=== PATIENT | female | born 1970 ===

== ENCOUNTER 2017-04-23 07:33 | Emergency (ER) | payer OTHER ==
[2017-04-23 07:33] VITALS: BMI 31.8
[2017-04-23 07:39] VITALS: BP 121/81; PULSE 79; TEMP 97; O2SAT 100
--- NOTE | 2017-04-23 10:37 | RAD ---
HISTORY: R chest pain COMPARISON: 01/14/2016. TECHNIQUE: Chest PA and lateral FINDINGS: LUNGS: The lungs are well inflated and clear. PLEURA: No significant pleural effusion identified. No pneumothorax apparent. CARDIOVASCULAR: Normal. OSSEOUS STRUCTURES: No significant abnormalities. VISUALIZED UPPER ABDOMEN: Normal. OTHER FINDINGS: None. IMPRESSION: No active pulmonary disease.
--- NOTE | 2017-04-23 11:00 | ED PDOC ---
Upper Extremity Pain/Injury Time Seen by Provider: 04/23/17 07:57 Chief Complaint (Nursing): Chest Pain Chief Complaint (Provider): Right arm and shoulder pain History Per: Patient History/Exam Limitations: no limitations Onset/Duration Of Symptoms: Days (x 3 days) Current Symptoms Are (Timing): Still Present Additional Complaint(s): Micheline Montoya is a 46-year-old female with a past medical history of hypertension who presents to the emergency department complaining of right upper arm and shoulder pain with associated paresthesia to the arm with movement , onset after punching a wall 3 days ago. Patient reports being seen at [facility] and had a "negative" X-Ray. The pain is persistent and radiates to the right posterior back. Denies neck pain, headaches, and being assaulted. PMD: Not reported Past Medical History Reviewed: Historical Data, Nursing Documentation, Vital Signs Vital Signs: Last Vital Signs Temp 97 F L 04/23/17 07:38 Pulse 79 04/23/17 07:38 Resp BP 121/81 04/23/17 07:38 Pulse Ox 100 04/23/17 07:38 - Medical History PMH: Arthritis, Diabetes (gestational), HTN, Kidney Stones, Migraine ( hemiplegic migraine) Denies: HIV - Surgical History Surgical History: Appendectomy, Cholecystectomy, Tonsillectomy, - Family History Family History: States: Unknown Family Hx - Social History Current smoker - smoking cessation education provided: Yes Alcohol: None Drugs: Denies - Home Medications Home Medications: Ambulatory Orders Medication Instructions Recorded Chlorthalidone 25 mg PO DAILY 02/24/15 Acetaminophen/Butalbital/Caf 1 tab PO Q4 PRN #30 tab 02/25/15 [Fioricet] Potassium Chloride [K-Dur 20] 40 meq PO DAILY #7 tab 02/25/15 Topiramate [Topamax] 25 mg PO HS #30 tab 02/25/15 Clindamycin [Cleocin] 300 mg PO TID #30 cap 03/19/15 Potassium Chloride 20 meq PO BID #8 tablet.er 01/14/16 Ranitidine HCl [Zantac 150] 150 mg PO BID #20 tab 01/14/16 Naproxen [Naprosyn] 500 mg PO BID PRN #14 tablet 04/23/17 - Allergies Allergies/Adverse Reactions: Allergies Allergy/AdvReac Type Severity Reaction Status Date / Time latex Allergy REDNESS Verified 01/14/16 16:19 tape Allergy REDNESS Uncoded 01/14/16 16:19 Review of Systems ROS Statement: Except As Marked, All Systems Reviewed And Found Negative Musculoskeletal: Positive for: Shoulder Pain, Arm Pain (Right upper arm and shoulder pain, radiating to the right posterior back), Back Pain. Negative for : Neck Pain Neurological: Positive for: Other (Paresthesia to the right arm with movement). Negative for: Headache Physical Exam - Reviewed Nursing Documentation Reviewed: Yes Vital Signs Reviewed: Yes - Physical Exam Appears: Positive for: Well, Non-toxic, No Acute Distress Head Exam: Positive for: ATRAUMATIC, NORMAL INSPECTION, NORMOCEPHALIC Skin: Positive for: Normal Color, Warm, Dry Eye Exam: Positive for: EOMI, Normal appearance, PERRL Neck: Positive for: Normal (Nontender. No signs of erythema or edema. ), Supple Cardiovascular/Chest: Positive for: Regular Rate, Rhythm, Other (No subcutaneous emphysema). Negative for: Murmur Respiratory: Positive for: Normal Breath Sounds. Negative for: Accessory Muscle Use, Respiratory Distress Back: Positive for: Normal Inspection Extremity: Positive for: Tenderness (Mild tenderness to the proximal, dorsal hand. Mild tenderness with ROM to shoulder and scapula.), Other (No signs of erythema or edema). Negative for: Pedal Edema, Deformity Neurologic/Psych: Positive for: Alert, Oriented - ECG O2 Sat by Pulse Oximetry: 100 (RA) Pulse Ox Interpretation: Normal Medical Decision Making Medical Decision Making: Time: 08:01 Initial impression: Right upper arm pain Initial plan: --Chest Two Views (RAD) --Toradol 30 mg IM --Elbow right 3 Views (RAD) --Hand RIght 3 Views (RAD) --Shoulder Right (RAD) --Wrist, Right 3 (RAD) Time: 10:35 --Chest X-ray FINDINGS: LUNGS: The lungs are well inflated and clear. PLEURA: No significant pleural effusion identified. No pneumothorax apparent. CARDIOVASCULAR: Normal. OSSEOUS STRUCTURES: No significant abnormalities. VISUALIZED UPPER ABDOMEN: Normal. OTHER FINDINGS: None. IMPRESSION: No active pulmonary disease. Time: 10:59 ---X-Ray read by me: Negative ---Given Toradol with improvement ---Given sling, will follow up with Orthopedist Upon provider reevaluation patient is feeling better, is medically stable, and requires no further treatment in the ED at this time. Patient will be discharged with sling x3 days and Naprosyn 500 mg 2x daily as needed for pain. Counseling was provided and all questions were answered regarding diagnosis and need for follow up with orthopedist, Dr. Molly Mahmood MD, for further testing. There is agreement to discharge plan. Return if symptoms persist or worsen. Clinical Impression: Arm and shoulder pain Scribe Attestation: Documented by Maki Hope, acting as a scribe for Naveed Armendariz MD. Provider Scribe Attestation: All medical record entries made by the Scribe were at my direction and personally dictated by me. I have reviewed the chart and agree that the record accurately reflects my personal performance of the history, physical exam, medical decision making, and the department course for this patient. I have also personally directed, reviewed, and agree with the discharge instructions and disposition. Disposition - Clinical Impression Clinical Impression: Arm pain, Shoulder pain - Patient ED Disposition Is Patient to be Admitted: No Counseled Patient/Family Regarding: Diagnosis, Need For Followup, Rx Given - Disposition Referrals: Molly Mahmood MD [Staff Provider] - Disposition: Routine/Home Disposition Time: 10:59 Condition: STABLE Additional Instructions: See orthopedist for further testing. Wear sling for 3 days only. Use naprosyn 500mg with food 2x daily as needed for pain. Prescriptions: Naproxen [Naprosyn] 500 mg PO BID PRN #14 tablet PRN Reason: Pain, Moderate (4-7) Instructions: Arthralgia (ED), Arm Pain (ED) Forms: [place] ([place]), [facility] ED School/Work Excuse
--- NOTE | 2017-04-23 11:33 | RAD ---
PROCEDURE: Radiographs of the Right Shoulder HISTORY: R hand/shoulder pain COMPARISON: No prior. FINDINGS: BONES: No evidence of acute displaced fracture nor dislocation. The osseous structures intact JOINTS: Normal. Glenohumeral and acromioclavicular joints preserved. No osteoarthritis. SOFT TISSUES: . Small corticated bony density within the soft tissues adjacent to the humeral head may represent calcified tendinitis or bursitis l. OTHER FINDINGS: None. IMPRESSION: No acute fractures. Findings suggest sequela of calcified tendinitis or bursitis.
--- NOTE | 2017-04-23 13:37 | RAD ---
PROCEDURE: Right Hand Radiographs. HISTORY: R hand trauma COMPARISON: None. FINDINGS: BONES: Normal. No fracture. JOINTS: Normal. No osteoarthritic changes. SOFT TISSUES: Normal. OTHER FINDINGS: None. IMPRESSION: No acute findings related to/accounting for the clinical presentation.
--- NOTE | 2017-04-23 14:37 | RAD ---
PROCEDURE: Right Wrist Radiographs. HISTORY: R wrist trauma 2 days ago COMPARISON: None. FINDINGS: BONES: Bone alignment and mineralization are normal. There is no acute displaced fracture or bone destruction. JOINTS: The proximal and distal carpal rows are maintained. The joint spaces are normal. SOFT TISSUES: Normal. OTHER FINDINGS: None. IMPRESSION: No acute displaced fracture or dislocation.
--- NOTE | 2017-04-23 14:38 | RAD ---
PROCEDURE: Radiographs of the right elbow. HISTORY: R hand/shoulder pain COMPARISON: No prior. FINDINGS: BONES: No acute displaced fracture or bone destruction. Bone alignment and mineralization are normal. JOINTS: There is mild degenerative osteoarthrosis with marginal spurring. SOFT TISSUES: Normal. JOINT EFFUSION: None. OTHER FINDINGS: None. IMPRESSION: No acute displaced fracture or dislocation. Mild degenerative osteoarthrosis.
== END 2017-04-23 10:44 | disposition home or self-care (01) ==
LOC: H.ER 07:33
DX: M25.511 Pain in right shoulder (principal); M79.601 Pain in right arm

== ENCOUNTER 2017-04-28 20:50 | Inpatient (IN) | payer OTHER ==
[2017-04-28 20:50] VITALS: BMI 31.8
[2017-04-28] MEDS ORDERED: Sodium Chloride 0.9% 1,000 ML IV STA (21:15)
[2017-04-28] MEDS ORDERED: Morphine 4 MG/ML VIAL IV ONE (21:15)
--- NOTE | 2017-04-28 21:18 | ED PDOC ---
HPI: General Adult Time Seen by Provider: 04/28/17 21:04 Chief Complaint (Nursing): Back Pain Chief Complaint (Provider): Neck pain History Per: Patient History/Exam Limitations: no limitations Onset/Duration Of Symptoms: Days (1 week) Have you had recent travel within the past 21 days to any of the following countries: [place], [place], [place] or [place]?: No Current Symptoms Are (Timing): Still Present Additional Complaint(s): Pt. with 1 week of neck pain and R arm pain. Off and on numbness/tingles down R arm. Started after she punched a wall 1 week ago. No chest pain, dyspnea, headaches, weakness. No leg or pain elsewhere. No back pain, incontinence, constipation. Had MRI showing cervical stenosis. Past Medical History Reviewed: Nursing Documentation, Vital Signs Vital Signs: Last Vital Signs Temp 97.7 F 04/28/17 20:53 Pulse 67 04/28/17 20:53 Resp 16 04/28/17 20:53 BP 123/95 H 04/28/17 20:53 Pulse Ox 98 04/28/17 20:53 - Medical History PMH: Arthritis, HTN, Migraine (hemiplegic migraine) Denies: HIV Other PMH: cervical stenosis - Surgical History Surgical History: Appendectomy, Cholecystectomy, Tonsillectomy, - Family History Family History: States: Unknown Family Hx - Social History Alcohol: None Drugs: Denies - Home Medications Home Medications: Ambulatory Orders Medication Instructions Recorded Chlorthalidone 25 mg PO DAILY 02/24/15 methylPREDNISolone [Medrol] 4 mg PO DAILY 04/28/17 - Allergies Allergies/Adverse Reactions: Allergies Allergy/AdvReac Type Severity Reaction Status Date / Time latex Allergy REDNESS Verified 01/14/16 16:19 tape Allergy REDNESS Uncoded 01/14/16 16:19 Review of Systems ROS Statement: Except As Marked, All Systems Reviewed And Found Negative Musculoskeletal: Positive for: Neck Pain, Arm Pain Neurological: Positive for: Weakness, Numbness Physical Exam - Reviewed Nursing Documentation Reviewed: Yes Vital Signs Reviewed: Yes - Physical Exam Appears: Positive for: Non-toxic, No Acute Distress Head Exam: Positive for: ATRAUMATIC, NORMAL INSPECTION, NORMOCEPHALIC Skin: Positive for: Normal Color, Warm, DRY Eye Exam: Positive for: EOMI, Normal appearance, PERRL ENT: Positive for: Normal ENT Inspection Neck: Positive for: Supple, Limited ROM, Trachea Midline. Negative for: Painless ROM (pain to the R side of neck; pain on moving it active and passively.) Cardiovascular/Chest: Positive for: Regular Rate, Rhythm Respiratory: Positive for: CNT, Normal Breath Sounds Gastrointestinal/Abdominal: Positive for: Normal Exam, Bowel Sounds, Soft. Negative for: Tenderness Back: Positive for: Normal Inspection. Negative for: L CVA Tenderness, R CVA Tenderness Extremity: Positive for: Tenderness (R arm diffuse; 4/5 strength; limited ROM due to pain at shoulder.). Negative for: Normal ROM Neurologic/Psych: Positive for: Alert, Oriented. Negative for: Motor/Sensory Deficits - ECG ECG: Positive for: Interpreted By Me, Viewed By Me ECG Rhythm: Positive for: Normal QRS, Normal ST Segment, Sinus Rhythm O2 Sat by Pulse Oximetry: 98 Pulse Ox Interpretation: Normal - Progress ED Course And Treament: 1007: Spoke with Dr. Wallace. Well aware of pt. Wants admit for further pain control and eval. Spoke with [facility] resident. Will admit. AAOx3. Disposition - Clinical Impression Clinical Impression: Cervical stenosis of spine, Radiculopathy - Patient ED Disposition Is Patient to be Admitted: Yes Doctor Will See Patient In The: ED Counseled Patient/Family Regarding: Studies Performed, Diagnosis - Disposition Disposition Time: 22:07 Condition: FAIR - Pt Status Changed To: Hospital Disposition Of: Inpatient - Admit Certification Admit to Inpatient:: After my assessment, the patient will require hospitalization for at least two midnights. This is because of the severity of symptoms shown, intensity of services needed, and/or the medical risk in this patient being treated as an outpatient. - POA Present On Arrival: Falls Or Trauma
[2017-04-28 21:44] LABS: BASO % 0.3 % (0.0-2.0); EOS % 0.2 % (0.0-4.0); HEMATOCRIT 38.4 % (34.0-47.0); LYMPH # 3.5 K/uL (1.0-4.3); LYMPH % 23.6 % (20.0-40.0); MEAN CELL VOLUME 82.7 fl (81.0-99.0); MEAN CORPUSCULAR HEMOGLOBIN 27.1 pg (27.0-31.0); MEAN CORPUSCULAR HGB CONC 32.8 g/dL (33.0-37.0); MEAN PLATELET VOLUME 8.1 fl (7.2-11.7); MONO % 6.9 % (0.0-10.0); NEUT # 10.1 K/uL (1.8-7.0); NRBC % 0.1 % (0.0-0.0); RED CELL DISTRIBUTION WIDTH 13.8 % (11.5-14.5); WHITE BLOOD COUNT 14.7 K/uL (4.8-10.8)
[2017-04-28 21:51] LABS: BLOOD UREA NITROGEN 18 mg/dl (7-17); CALCIUM 9.7 mg/dL (8.4-10.2); CARBON DIOXIDE 28 mmol/L (22-30); CHLORIDE 98 mmol/L (98-107); GFR AFRICAN-AMERICAN > 60; GLUCOSE,RANDOM 141 mg/dL (65-105); POTASSIUM 3.4 MMOL/L (3.6-5.0); SODIUM 140 mmol/l (132-148)
[2017-04-28] MEDS ORDERED: HYDROmorphone 0.5 mg/0.5 ml ISec IVP PRN (23:40)
[2017-04-28] MEDS ORDERED: Morphine 4 MG/ML VIAL IVP ONE (23:42)
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
[2017-04-29 01:28] LABS: PARTIAL THROMBOPLASTIN TIME 29.9 Seconds (25.6-37.1)
[2017-04-29] MEDS: Potassium Chloride 20 mEq ER Tab PO SCH ×2 (02:28→17:13)
--- NOTE | 2017-04-29 08:40 | CARD ---
APPROVED REPORT EKG Measurement Heart [id number] <Conclusion> Normal sinus rhythm Normal ECG
[2017-04-29] MEDS ORDERED: ZONISAMIDE 25 MG PO SCH (09:00)
[2017-04-29] MEDS ORDERED: Enoxaparin 40 mg Syringe SC SCH (09:00)
[2017-04-29] MEDS: Enoxaparin 40 mg Syringe SC SCH (09:18)
[2017-04-29] MEDS: HYDROmorphone 0.5 mg/0.5 ml ISec IVP PRN ×4 (12:09→23:16)
[2017-04-29] MEDS: ZONISAMIDE 25 MG PO SCH (21:29)
[2017-04-30] MEDS: HYDROmorphone 0.5 mg/0.5 ml ISec IVP PRN ×4 (03:04→23:44)
--- NOTE | 2017-04-30 07:52 | CP.PCM.CON ---
History of Present Illness - History of Present Illness History of Present Illness: 46 yo woman developed acute right neck, shoulder and arm pain after punching a concrete wall with her fist about 1 week ago. There were no musculoskeletal injuries but she developed nerve pain afterwards. The pain involves the areas above, and is associated with numbness and weakness, but she denies temperature changes or swelling until now. She denies significant pain on the left side. She had been seeing Dr. Wallace and had outpatient cervical spine and left shoulder MRI. Cervical MRI showed large C3-4, C4-5 disc herniation, but that's left-sided. There are some right sided findings, but nothing significant. The current regimen of Dilaudid IV, Neurontin 300mg q8h is only mildly helping with the pain. She mentions that she may be receiving cervical spine surgery tomorrow. Past Patient History - Past Medical History & Family History Past Medical History?: Yes - Past Social History Smoking Status: Light Smoker < 10 Cigarettes Daily - CARDIAC Hx Hypertension: Yes - PULMONARY Hx Respiratory Disorders: No - NEUROLOGICAL Hx Migraine: Yes (hemiplegic migraine) - HEENT Hx HEENT Problems: No - RENAL Hx Kidney Stones: Yes - ENDOCRINE/METABOLIC Hx Diabetes Mellitus Type 2: Yes - HEMATOLOGICAL/ONCOLOGICAL Hx Human Immunodeficiency Virus (HIV): No - INTEGUMENTARY Hx Dermatological Problems: No - MUSCULOSKELETAL/RHEUMATOLOGICAL Hx Falls: No - GENITOURINARY/GYNECOLOGICAL Hx Genitourinary Disorders: No - PSYCHIATRIC Hx Substance Use: No - SURGICAL HISTORY Hx Appendectomy: Yes Hx Cholecystectomy: Yes Hx Tonsillectomy: Yes - ANESTHESIA Hx Anesthesia: Yes Hx Anesthesia Reactions: No Hx Malignant Hyperthermia: No Meds Allergies/Adverse Reactions: Allergies Allergy/AdvReac Type Severity Reaction Status Date / Time latex Allergy REDNESS Verified 01/14/16 16:19 tape Allergy REDNESS Uncoded 01/14/16 16:19 - Medications Medications: Current Medications Acetaminophen (Tylenol 325mg Tab) 650 mg PO Q6 PRN PRN Reason: Pain, Mild (1-3) Chlorthalidone (Hygroton) 25 mg PO DAILY [facility] Last Admin: 04/29/17 09:19 Dose: 25 mg Enoxaparin Sodium (Lovenox) 40 mg SC DAILY ZAY PRN Reason: Protocol Last Admin: 04/29/17 09:18 Dose: 40 mg Famotidine (Pepcid) 20 mg PO BID [facility] Last Admin: 04/29/17 17:13 Dose: 20 mg Gabapentin (Neurontin) 300 mg PO TID [facility] Last Admin: 04/29/17 17:12 Dose: 300 mg Home Med (Zonisamide) 100 mg PO HS [facility] Last Admin: 04/29/17 21:29 Dose: 100 mg Hydromorphone HCl (Dilaudid) 1 mg IVP Q4 PRN PRN Reason: Pain, severe (8-10) Last Admin: 04/30/17 03:04 Dose: 1 mg Physical Exam - Neck Exam Neck exam: Positive for: Tenderness - Respiratory Exam Respiratory Exam: Clear to Auscultation Bilateral - Cardiovascular Exam Cardiovascular Exam: REGULAR RHYTHM - GI/Abdominal Exam GI & Abdominal Exam: Normal Bowel Sounds - Neurological Exam Additional comments: Diminished sensation in all dermatones on the right, weakness due to pain as well. No allodynia/autonomic changes. Results - Vital Signs Recent Vital Signs: Last Vital Signs Temp 98.4 F 04/30/17 00:22 Pulse 76 04/30/17 00:22 Resp 20 04/30/17 00:22 BP 110/75 04/30/17 00:22 Pulse Ox 96 04/30/17 00:22 - Labs Result Diagrams: 04/28/17 21:32 04/28/17 21:32 Assessment & Plan (1) Cervical stenosis of spine Assessment and Plan: 46 yo woman w/ acute onset of right arm pain, cervical radiculopathy vs CRPS vs brachial plexopathy. The sequence of events and laterality of cervical MRI findings may point away from cervical radiculopathy as the cause. Patient may need both cervical epidural and sympathetic block. There is discussion that patient will have surgery tomorrow. - continue Dilaudid 1mg q4h PRN - increase Neurontin to 400mg q8h - add Cymbalta 30mg qhs - will hold off injection if patient is to have surgery - will proceed with injection if surgery is not planned Status: Acute
[2017-04-30] MEDS: Enoxaparin 40 mg Syringe SC SCH (09:05)
--- NOTE | 2017-04-30 14:24 | CP.PCM.PN ---
Subjective - Date & Time of Evaluation Date of Evaluation: 04/30/17 Time of Evaluation: 07:40 - Subjective Subjective: Patient seen and examined at bedside. In no acute distress. Sitting in bed, reports her neck and RUE pain persists but has mildly improved. Had some nausea and 1 episode of vomiting this AM. Has normal urine and stool output. Objective - Vital Signs/Intake and Output Vital Signs (last 24 hours): Temp Pulse Resp BP Pulse Ox 97.9 F 63 18 110/78 96 04/30/17 07:49 04/30/17 07:49 04/30/17 07:49 04/30/17 07:49 04/30/17 07:49 - Medications Medications: Current Medications Acetaminophen (Tylenol 325mg Tab) 650 mg PO Q6 PRN PRN Reason: Pain, Mild (1-3) Chlorthalidone (Hygroton) 25 mg PO DAILY [facility] Last Admin: 04/30/17 09:05 Dose: 25 mg Duloxetine HCl (Cymbalta) 30 mg PO DAILY [facility] Last Admin: 04/30/17 11:01 Dose: 30 mg Enoxaparin Sodium (Lovenox) 40 mg SC DAILY [facility] PRN Reason: Protocol Last Admin: 04/30/17 09:05 Dose: 40 mg Famotidine (Pepcid) 20 mg PO BID [facility] Last Admin: 04/30/17 09:05 Dose: 20 mg Gabapentin (Neurontin) 400 mg PO TID [facility] Last Admin: 04/30/17 13:15 Dose: 400 mg Home Med (Zonisamide) 100 mg PO HS [facility] Last Admin: 04/29/17 21:29 Dose: 100 mg Hydromorphone HCl (Dilaudid) 1 mg IVP Q4 PRN PRN Reason: Pain, severe (8-10) Last Admin: 04/30/17 07:47 Dose: 1 mg - Labs Labs: PT 10.5 Seconds (9.8-13.1) 04/28/17 21:32 INR 0.9 (0.9-1.2) 04/28/17 21:32 APTT 29.9 Seconds (25.6-37.1) 04/28/17 21:32 - Constitutional Appears: Other (Drowsy) - Head Exam Head Exam: ATRAUMATIC, NORMOCEPHALIC - Eye Exam Eye Exam: EOMI, PERRL - ENT Exam ENT Exam: Mucous Membranes Moist - Neck Exam Neck Exam: Tenderness (along cervical spine and along Right posterior shoulder) - Respiratory Exam Respiratory Exam: Clear to Ausculation Bilateral, NORMAL BREATHING PATTERN - Cardiovascular Exam Cardiovascular Exam: REGULAR RHYTHM, +S1, +S2 - GI/Abdominal Exam GI & Abdominal Exam: Soft (obese), Normal Bowel Sounds. absent: Distended, Tenderness - Extremities Exam Extremities Exam: Tenderness (in RUE with limited ROM due to pain, severe pain on right arm extension up to 60 degrees, strength 4/5 in right hand and arm, sensation decreased in right shoulder/arm and hand) - Back Exam Back Exam: absent: CVA tenderness (L), CVA tenderness (R) - Neurological Exam Neurological Exam: Alert, Awake, CN II-XII Intact, Oriented x3 - Psychiatric Exam Psychiatric exam: Depressed - Skin Skin Exam: Dry, Intact, Warm Assessment and Plan - Assessment and Plan (Free Text) Assessment: 46yr old F admitted for worsening neck and right arm pain with recent MRI findings of Cervical stenosis. Orthopedics and Neurosurgery consulted patient is not a candidate for surgical intervention at this time as assessment points towards a neuromuscular abnormality and so recommended Neurology consult, will follow recommendations. Pain management is on board. Cervical Stenosis with Radiculopathy -worsening, chronic, secondary to past trauma -pt did not complete outpatient conservative tx as could not tolerate pain -MRI cervical spine 04/25/17: Multilevel degenerative disc disease worse at C4- C5 with a large posterolateral disc protrusion which indents the ventral cord -MRI right shoulder 04/25/17: partial tearing of articular surface of distal infraspinatus; partial tearing of anterior labrum -Orthopedics consult appreciated: Dr. Wallace : will follow recommendations -Neurosurgery consult appreciated Dr. Castaneda: no surgical intervention at this time, consult neurology -Pain management: Tylenol 650mg PO Q6H PRN pain mild 1-3, Toradol 30mg IV Q6H PRN pain moderate 4-7; Dilaudid 0.5mg IV Q6H PRN severe pain 8-10 warm compresses PRN, -PT screen and eval -Gabapentin 400mg PO TID Leukocytosis -acute, WBC 14.7, likely secondary to inflammation -afebrile, no left shift -f/u CBC Partial Seizures -recently diagnosed, last seizure yesterday afternoon -pt follows Dr. Salgado-neurology -continue with Zonegran 100mg PO QD (home med) HTN -controlled -continue Chlorthalidone 10mg PO QD -monitor BP -heart healthy diet Hypokalemia -acute, K+ 3.4 -K-dur 20Meq PO BID -f/u potassium DVT/GI prophylaxis -Lovenox 40mg SC QD -Famotidine 20mg PO BID
[2017-04-30] MEDS: ZONISAMIDE 25 MG PO SCH (21:07)
[2017-05-01 07:01] LABS: BLOOD UREA NITROGEN 13 mg/dl (7-17); CALCIUM 9.2 mg/dL (8.4-10.2); CARBON DIOXIDE 37 mmol/L (22-30); CHLORIDE 94 mmol/L (98-107); GFR AFRICAN-AMERICAN > 60; GLUCOSE,RANDOM 100 mg/dL (65-105); POTASSIUM 3.4 MMOL/L (3.6-5.0); SODIUM 138 mmol/l (132-148)
[2017-05-01 07:03] LABS: HEMATOCRIT 36.4 % (34.0-47.0); MEAN CELL VOLUME 83.5 fl (81.0-99.0); MEAN CORPUSCULAR HEMOGLOBIN 26.4 pg (27.0-31.0); MEAN CORPUSCULAR HGB CONC 31.7 g/dL (33.0-37.0); RED CELL DISTRIBUTION WIDTH 13.8 % (11.5-14.5); WHITE BLOOD COUNT 11.5 K/uL (4.8-10.8)
--- NOTE | 2017-05-01 08:55 | CP.PCM.PN ---
Subjective - Date & Time of Evaluation Date of Evaluation: 05/01/17 Time of Evaluation: 07:30 - Subjective Subjective: Patient seen and examined at bedside, no acute events overnight. Reports her neck and right upper extremity pain persists and only mildly controlled by medication. Patient is aware she will be evaluated by neurology today, and moving forward Dr. Aguilar from pain management will make a decision as to perform a nerve block pending neurology's recommendations, all of the above was discussed with patient. Objective - Vital Signs/Intake and Output Vital Signs (last 24 hours): Temp Pulse Resp BP Pulse Ox 97.4 F L 80 20 101/64 100 05/01/17 08:34 05/01/17 08:34 05/01/17 08:34 05/01/17 08:34 05/01/17 08:34 - Medications Medications: Current Medications Acetaminophen (Tylenol 325mg Tab) 650 mg PO Q6 PRN PRN Reason: Pain, Mild (1-3) Chlorthalidone (Hygroton) 25 mg PO DAILY [facility] Last Admin: 04/30/17 09:05 Dose: 25 mg Duloxetine HCl (Cymbalta) 30 mg PO HS [facility] Enoxaparin Sodium (Lovenox) 40 mg SC DAILY [facility] PRN Reason: Protocol Last Admin: 04/30/17 09:05 Dose: 40 mg Famotidine (Pepcid) 20 mg PO BID [facility] Last Admin: 04/30/17 16:59 Dose: 20 mg Gabapentin (Neurontin) 400 mg PO Q8 [facility] Home Med (Zonisamide) 100 mg PO HS [facility] Last Admin: 04/30/17 21:07 Dose: 100 mg Hydromorphone HCl (Dilaudid) 1 mg IVP Q4 PRN PRN Reason: Pain, severe (8-10) Last Admin: 05/01/17 08:25 Dose: 1 mg - Labs Labs: 05/01/17 05:50 05/01/17 05:50 PT 10.5 Seconds (9.8-13.1) 04/28/17 21:32 INR 0.9 (0.9-1.2) 04/28/17 21:32 APTT 29.9 Seconds (25.6-37.1) 04/28/17 21:32 - Constitutional Appears: Non-toxic, Other (uncomfortable, in pain) - Head Exam Head Exam: ATRAUMATIC, NORMOCEPHALIC - Eye Exam Eye Exam: EOMI, PERRL - ENT Exam ENT Exam: Mucous Membranes Moist - Neck Exam Neck Exam: absent: Lymphadenopathy - Respiratory Exam Respiratory Exam: Decreased Breath Sounds (patient does not take deep breaths because it is painful), NORMAL BREATHING PATTERN - Cardiovascular Exam Cardiovascular Exam: REGULAR RHYTHM, +S1, +S2 - GI/Abdominal Exam GI & Abdominal Exam: Soft (obese), Normal Bowel Sounds. absent: Distended, Tenderness - Back Exam Back Exam: absent: CVA tenderness (L), CVA tenderness (R) - Neurological Exam Neurological Exam: Alert, Awake, CN II-XII Intact, Oriented x3 - Psychiatric Exam Psychiatric exam: Depressed, Flat Affect - Skin Skin Exam: Dry, Intact, Normal Color, Warm Assessment and Plan - Assessment and Plan (Free Text) Assessment: 46yr old F admitted for worsening neck and right arm pain with recent MRI findings of Cervical stenosis. Orthopedics and Neurosurgery consulted patient is not a candidate for surgical intervention at this time as assessment points towards a neuromuscular abnormality and so recommended Neurology consult, will follow recommendations. Pain management is on board and will make a decision as to whether perform nerve block or continue pain meds pending neurology's recommendation. Cervical Stenosis with Radiculopathy -worsening, chronic, secondary to past trauma -pt did not complete outpatient conservative tx as could not tolerate pain -MRI cervical spine 04/25/17: Multilevel degenerative disc disease worse at C4- C5 with a large posterolateral disc protrusion which indents the ventral cord -MRI right shoulder 04/25/17: partial tearing of articular surface of distal infraspinatus; partial tearing of anterior labrum -Orthopedics consult appreciated: Dr. Wallace : will follow recommendations -Neurosurgery consult appreciated Dr. Castaneda: no surgical intervention at this time, consult neurology -Pain management: Tylenol 650mg PO Q6H PRN pain mild 1-3; Dilaudid 1mg IV Q4H PRN severe pain 8-10 ,warm compresses PRN, -PT screen and eval -Gabapentin 400mg PO Q8, Cymbalta 30mg QHS Leukocytosis -improved, WBC 11.5, likely secondary to inflammation -afebrile, no left shift -f/u CBC Partial Seizures -recently diagnosed, last seizure yesterday afternoon -pt follows Dr. Salgado-neurology -continue with Zonegran 100mg PO QD (home med) HTN -controlled -continue Chlorthalidone 10mg PO QD -monitor BP -heart healthy diet Hypokalemia -acute, K+ 3.4 -K-dur 20Meq PO BID -f/u potassium DVT/GI prophylaxis -Lovenox 40mg SC QD -Famotidine 20mg PO BID
[2017-05-01] MEDS: Potassium Chloride 20 mEq ER Tab PO SCH ×2 (10:02→17:53)
--- NOTE | 2017-05-01 14:29 | CP.PCM.CON ---
History of Present Illness - History of Present Illness History of Present Illness: Mrs. Montoya is a 46-year-old woman with a past medical history of severe arthritis requiring bilateral knee replacement, partial seizures, and hypertension who states that she had punched a concrete wall about one week ago. After she punched the wall, she did not have any pain, weakness or sensory changes. She said she felt okay that night. However, the following morning, she noticed her right hand was swollen. During that day, she felt that she was having pain going up her right hand and up to the elbow. The following day, she had more neck pain that was severe and was now shooting down her arm. Eventually, the pain settled on the anterior and posterior aspect of her right shoulder. It is associated with tenderness, severe pain, weakness due to pain, and loss of sensation to touch. She had an MRI of the cervical spine and right shoulder performed which showed disc bulge in the cervical region that was protruding toward the left side at C4-C6. The patient was started on gabapentin and titrated up to 400 mg TID with minor relief. She does not benefit from dilaudid. She was recently started on Cymbalta as well. The pain continues. She was evaluated by spine surgery with no scheduled surgery as of yet. Review of Systems - Review of Systems All systems: reviewed and no additional remarkable complaints except Past Patient History - Past Medical History & Family History Past Medical History?: Yes - Past Social History Smoking Status: Light Smoker < 10 Cigarettes Daily - CARDIAC Hx Hypertension: Yes - PULMONARY Hx Respiratory Disorders: No - NEUROLOGICAL Hx Migraine: Yes (hemiplegic migraine) - HEENT Hx HEENT Problems: No - RENAL Hx Kidney Stones: Yes - ENDOCRINE/METABOLIC Hx Diabetes Mellitus Type 2: Yes - HEMATOLOGICAL/ONCOLOGICAL Hx Human Immunodeficiency Virus (HIV): No - INTEGUMENTARY Hx Dermatological Problems: No - MUSCULOSKELETAL/RHEUMATOLOGICAL Hx Falls: No - GENITOURINARY/GYNECOLOGICAL Hx Genitourinary Disorders: No - PSYCHIATRIC Hx Substance Use: No - SURGICAL HISTORY Hx Appendectomy: Yes Hx Cholecystectomy: Yes Hx Tonsillectomy: Yes - ANESTHESIA Hx Anesthesia: Yes Hx Anesthesia Reactions: No Hx Malignant Hyperthermia: No Meds Allergies/Adverse Reactions: Allergies Allergy/AdvReac Type Severity Reaction Status Date / Time latex Allergy REDNESS Verified 01/14/16 16:19 tape Allergy REDNESS Uncoded 01/14/16 16:19 - Medications Medications: Current Medications Acetaminophen (Tylenol 325mg Tab) 650 mg PO Q6 PRN PRN Reason: Pain, Mild (1-3) Last Admin: 05/01/17 12:00 Dose: 650 mg Chlorthalidone (Hygroton) 25 mg PO DAILY [facility] Last Admin: 05/01/17 09:01 Dose: 25 mg Duloxetine HCl (Cymbalta) 30 mg PO [facility] Enoxaparin Sodium (Lovenox) 40 mg SC DAILY [facility] PRN Reason: Protocol Last Admin: 04/30/17 09:05 Dose: 40 mg Famotidine (Pepcid) 20 mg PO BID [facility] Last Admin: 05/01/17 09:00 Dose: 20 mg Gabapentin (Neurontin) 400 mg PO Q8 [facility] Last Admin: 05/01/17 09:01 Dose: 400 mg Home Med (Zonisamide) 100 mg PO HS [facility] Last Admin: 04/30/17 21:07 Dose: 100 mg Hydromorphone HCl (Dilaudid) 1 mg IVP Q4 PRN PRN Reason: Pain, severe (8-10) Last Admin: 05/01/17 08:25 Dose: 1 mg Potassium Chloride (K-Dur 20 Meq Er Tab) 20 meq PO BID [facility] Last Admin: 05/01/17 10:02 Dose: 20 meq Physical Exam - Constitutional Appears: Well - Head Exam Head Exam: ATRAUMATIC, NORMAL INSPECTION, NORMOCEPHALIC - Eye Exam Eye Exam: EOMI, Normal appearance, PERRL - ENT Exam ENT Exam: Mucous Membranes Moist, Normal Exam - Neck Exam Neck exam: Positive for: Tenderness - Respiratory Exam Respiratory Exam: Clear to Auscultation Bilateral, NORMAL BREATHING PATTERN - Cardiovascular Exam Cardiovascular Exam: REGULAR RHYTHM, +S1, +S2 - GI/Abdominal Exam GI & Abdominal Exam: Normal Bowel Sounds, Soft. absent: Tenderness - Rectal Exam Rectal Exam: Deferred - Expanded Upper Extremities Exam Right Shoulder exam: swelling, tenderness Upper Arm exam: tenderness Neuro motor exam: finger 2-5 abduction intact, thumb abduction, thumb IP flexion intact, thumb opposition intact, wrist extension intact Neurosensory exam: 2-poit discrimination Vascular exam: brachial pulse, pallor, pulse deficit brachial art, pulse deficit radial art, pulse deficit ulnar art, radial pulse, ulnar pulse, vascular compromise, normal capillary refill - Neurological Exam Neurological exam: Alert, CN II-XII Intact, Normal Gait, Oriented x3 Additional comments: Reflexes are brisk in the C5/C6 region on the right side as compared with the left. There is decreased sensation in the dermatomal distribution of C5-T1. 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 Weakness on finger abduction and adduction. Arm extension was weaker than flexion and was associated with pain. Shoulder abduction caused pain. - Psychiatric Exam Psychiatric exam: Normal Affect, Normal Mood - Skin Skin Exam: Dry, Intact, Normal Color, Warm Results - Vital Signs Recent Vital Signs: Last Vital Signs Temp 97.4 F L 05/01/17 08:34 Pulse 80 05/01/17 08:34 Resp 20 05/01/17 08:34 BP 101/64 05/01/17 08:34 Pulse Ox 100 05/01/17 08:34 - Labs Result Diagrams: 05/01/17 05:50 05/01/17 05:50 Labs: Laboratory Results - last 24 hr 05/01/17 05/01/17 05:50 05:50 WBC 11.5 H RBC 4.36 Hgb 11.5 L Hct 36.4 MCV 83.5 MCH 26.4 L MCHC 31.7 L RDW 13.8 Plt Count 415 H Sodium 138 Potassium 3.4 L Chloride 94 L Carbon Dioxide 37 H Anion Gap 10 BUN 13 Creatinine 0.8 Est GFR ( Amer) > 60 Est GFR (Non-Af Amer) > 60 Random Glucose 100 Calcium 9.2 Assessment & Plan (1) Brachial plexopathy Assessment and Plan: Although this is usually an inflammatory cause, clinically she does have involvement of most of the brachial plexus nerves with the exception of the long thoracic. I recommend obtaining an MRI of the brachial plexus on the right side with and without contrast. I also recommend giving dexamethasone 10 mg Q8 for 3 doses. Start carbamazepine 200 mg BID. I recommend stopping Cymbalta. EMG/NCS can be obtained as an outpatient in one week. Thank you for this consultation. Status: Acute Priority: High
--- NOTE | 2017-05-01 16:22 | CP.PCM.PN ---
Subjective - Date & Time of Evaluation Date of Evaluation: 05/01/17 Time of Evaluation: 16:00 - Subjective Subjective: Patient still complains of pain in the right arm, with weakness and numbness. Patient has been seen by the neurologist, who recommended brachial plexus MRI, and outpatient EMG/NCV. I discussed with the patient the course of events for pain management, which will most likely entail re-assessment after MRI and EMG/NCV, at which point the best intervention will be decided. For now, she's to rely on medication management per neurologist. Objective - Vital Signs/Intake and Output Vital Signs (last 24 hours): Temp Pulse Resp BP Pulse Ox 97.7 F 70 18 109/72 96 05/01/17 15:39 05/01/17 15:39 05/01/17 15:39 05/01/17 15:39 05/01/17 15:39 - Medications Medications: Current Medications Acetaminophen (Tylenol 325mg Tab) 650 mg PO Q6 PRN PRN Reason: Pain, Mild (1-3) Last Admin: 05/01/17 12:00 Dose: 650 mg Carbamazepine (Tegretol) 200 mg PO Q12 [facility] Chlorthalidone (Hygroton) 25 mg PO DAILY [facility] Last Admin: 05/01/17 09:01 Dose: 25 mg Duloxetine HCl (Cymbalta) 30 mg PO HS [facility] Enoxaparin Sodium (Lovenox) 40 mg SC DAILY [facility] PRN Reason: Protocol Last Admin: 04/30/17 09:05 Dose: 40 mg Famotidine (Pepcid) 20 mg PO BID [facility] Last Admin: 05/01/17 09:00 Dose: 20 mg Gabapentin (Neurontin) 400 mg PO Q8 [facility] Last Admin: 05/01/17 09:01 Dose: 400 mg Home Med (Zonisamide) 100 mg PO HS [facility] Last Admin: 04/30/17 21:07 Dose: 100 mg Hydromorphone HCl (Dilaudid) 1 mg IVP Q4 PRN PRN Reason: Pain, severe (8-10) Last Admin: 05/01/17 14:18 Dose: 1 mg Dexamethasone 10 mg/ Sodium (Chloride) 51 mls @ 100 mls/hr IV Q8 [facility] Stop: 05/01/17 18:29 Potassium Chloride (K-Dur 20 Meq Er Tab) 20 meq PO BID [facility] Last Admin: 05/01/17 10:02 Dose: 20 meq - Labs Labs: 05/01/17 05:50 05/01/17 05:50 PT 10.5 Seconds (9.8-13.1) 04/28/17 21:32 INR 0.9 (0.9-1.2) 04/28/17 21:32 APTT 29.9 Seconds (25.6-37.1) 04/28/17 21:32 Assessment and Plan (1) Cervical stenosis of spine Assessment & Plan: 46 yo woman w/ right arm pain/numbness after punching a wall. - f/u MRI of brachial plexus, eventual EMG/NCV - medication management per neurology - patient can be discharged on Percocet along with recommendations by neurology - patient can follow up with me as outpatient after EMG/NCV Status: Acute
[2017-05-01] MEDS ORDERED: Gadodiamide 287 MG/ML VIAL (15ML) IV ONE (16:31)
[2017-05-01] MEDS: Dexamethasone 10 MG in Sodium Chloride 0.9% 50 ML IV SCH (18:20)
[2017-05-01] MEDS: ZONISAMIDE 25 MG PO SCH (21:13)
--- NOTE | 2017-05-01 23:48 | CON ---
HISTORY OF PRESENT ILLNESS: The patient is a 46-year-old female, right hand dominant that is well known to me, was seen by me in the office for right shoulder pain and cervical spine pain after she had punched a wall. I had ordered MRI of the cervical spine and right shoulder. Right shoulder MRI showed a partial rotator cuff tear along with synovitis. MRI of the patient's cervical spine showing a significant disk herniation with left-sided foraminal stenosis on L4-L5 level. The patient was prescribed Medrol Dosepak and instructed to follow with his dental billing specialist, Dr. Aquiles Castaneda. Over the weekend, the patient had progression of her symptoms. She had symptoms of radiculopathy on the right side and weakness. At that point, the patient was instructed to come to emergency room. The patient was seen by pain medical doctor and also Dr. Aquiles Castaneda, who expressed his concern regarding the patient's weakness may be related to brachial plexus injury since the history did not correlate with MRI findings. The patient was also seen by a neurologist and started on Neurontin, which did improve some pain. Currently, the patient has continued pain on her right side, limited range of motion of the shoulder. Does not have any significant motor deficit in her right upper extremity. PHYSICAL EXAMINATION: On examination of the patient's right shoulder, there is some swelling, limited range of motion secondary to pain, forward flexion actively to 90 and passively to 120, which is painful. External rotation actively and passively 20, that is painful. Neurovascularly intact distally. Limited range of motion of the cervical spine secondary to pain. IMAGING: MRI of the patient's right shoulder showing a cervical disk herniation of L4-L5 with left-sided foraminal stenosis. ASSESSMENT: A 46-year-old female right hand dominant with cervical radiculopathy, possible plexus injury and right shoulder possible rotator cuff tear treatment. I had a detailed discussion with the patient reviewing her history, physical exam and MRI. FINDINGS: The patient is currently being managed by the pain medicine, neurologist, and the orthopedist spine team. Regarding the patient's right shoulder, she will follow up in my office. No acute intervention needed for the right shoulder, and cervical spine management will be per pain management and spine team. Abdi Wallace MD [facility] # [id number]
[2017-05-02] MEDS: Dexamethasone 10 MG in Sodium Chloride 0.9% 50 ML IV SCH ×2 (00:12→08:54)
[2017-05-02] MEDS: Enoxaparin 40 mg Syringe SC SCH (08:52)
[2017-05-02] MEDS: Potassium Chloride 20 mEq ER Tab PO SCH ×2 (08:55→17:16)
--- NOTE | 2017-05-02 09:25 | MRI ---
PROCEDURE: MRI RIGHT BRACHIAL PLEXUS WITHOUT CONTRAST HISTORY: BRACHIAL PLEXUS INJURY COMPARISON: None. TECHNIQUE: Multiplanar multisequential MR imaging was performed throughout the right brachial plexus including the cervical spine, thoracic inlet right subclavian region as well as right shoulder. Following intravenous gadolinium injection, fat-suppressed T1 weighted sequences were performed (Omniscan 18 cc). FINDINGS: There is no interior mass seen related to any of the bilateral roots from C4-T1. The appear normal in course and caliber. Into the signal at the right brachia plexus trunks, cords and proximal nerves off the cords appears grossly unremarkable and there is no associated abnormal contrast enhancement related. There is no significant lymphadenopathy or mass encroaching the right brachia plexus. There is no aneurysmal dilatation or varix related to the subclavian artery or vein respectively. There is no hypertrophic muscular development Encroaching or impinging at the trunk the right-sided brachial plexus cords. Motion artifacts obscure the examination the right-sided brachial plexus cords somewhat. IMPRESSION: Unremarkable right brachial plexus MRI. No suspicious contrast enhancement is identified. No local mass seen in the neck, right pulmonary apex, right subclavian or supraclavicular region. No definite muscular entrapment process.
--- NOTE | 2017-05-02 11:54 | CP.PCM.PN ---
Objective - Vital Signs/Intake and Output Vital Signs (last 24 hours): Temp Pulse Resp BP Pulse Ox 97.8 F 68 20 118/78 93 L 05/02/17 08:04 05/02/17 08:04 05/02/17 08:04 05/02/17 08:04 05/02/17 08:04 - Medications Medications: Current Medications Acetaminophen (Tylenol 325mg Tab) 650 mg PO Q6 PRN PRN Reason: Pain, Mild (1-3) Last Admin: 05/01/17 12:00 Dose: 650 mg Carbamazepine (Tegretol) 200 mg PO Q12 [facility] Last Admin: 05/02/17 08:53 Dose: 200 mg Chlorthalidone (Hygroton) 25 mg PO DAILY [facility] Last Admin: 05/02/17 08:53 Dose: 25 mg Duloxetine HCl (Cymbalta) 30 mg PO HS [facility] Last Admin: 05/01/17 21:14 Dose: 30 mg Enoxaparin Sodium (Lovenox) 40 mg SC DAILY [facility] PRN Reason: Protocol Last Admin: 05/02/17 08:52 Dose: 40 mg Famotidine (Pepcid) 20 mg PO BID [facility] Last Admin: 05/02/17 08:53 Dose: 20 mg Gabapentin (Neurontin) 400 mg PO Q8 [facility] Last Admin: 05/02/17 08:53 Dose: 400 mg Home Med (Zonisamide) 100 mg PO HS [facility] Last Admin: 05/01/17 21:13 Dose: 100 mg Hydromorphone HCl (Dilaudid) 1 mg IVP Q4 PRN PRN Reason: Pain, severe (8-10) Last Admin: 05/02/17 11:22 Dose: 1 mg Potassium Chloride (K-Dur 20 Meq Er Tab) 20 meq PO BID [facility] Last Admin: 05/02/17 08:55 Dose: 20 meq - Labs Labs: 05/01/17 05:50 05/01/17 05:50 PT 10.5 Seconds (9.8-13.1) 04/28/17 21:32 INR 0.9 (0.9-1.2) 04/28/17 21:32 APTT 29.9 Seconds (25.6-37.1) 04/28/17 21:32
[2017-05-02 15:43] VITALS: BP 143/96; PULSE 105; RESP 18; TEMP 98.1; O2SAT 94
--- NOTE | 2017-05-02 16:36 | CP.PCM.DIS ---
Provider - Provider Date of Admission: 04/28/17 21:58 Attending physician: Ashley Sheridan MD Primary care physician: Dr. Lara ([facility]) Consults: Dr. Wallace-ortho; Dr. Castaneda- neurosurgery; Dr. Aguilar-Pain management; Dr. Schwab- neurology Time Spent in preparation of Discharge (in minutes): 30 Diagnosis - Discharge Diagnosis (1) Brachial plexopathy Status: Acute Priority: Low Hospital Course - Lab Results Lab Results: Most Recent Lab Values WBC 11.5 K/uL (4.8-10.8) H 05/01/17 05:50 RBC 4.36 Mil/uL (3.80-5.20) 05/01/17 05:50 Hgb 11.5 g/dL (12.0-16.0) L 05/01/17 05:50 Hct 36.4 % (34.0-47.0) 05/01/17 05:50 MCV 83.5 fl (81.0-99.0) 05/01/17 05:50 MCH 26.4 pg (27.0-31.0) L 05/01/17 05:50 MCHC 31.7 g/dL (33.0-37.0) L 05/01/17 05:50 RDW 13.8 % (11.5-14.5) 05/01/17 05:50 Plt Count 415 K/uL (130-400) H 05/01/17 05:50 MPV 8.1 fl (7.2-11.7) 04/28/17 21:32 Neut % (Auto) 69.0 % (50.0-75.0) 04/28/17 21:32 Lymph % (Auto) 23.6 % (20.0-40.0) 04/28/17 21:32 Ritchie % (Auto) 6.9 % (0.0-10.0) 04/28/17 21:32 Eos % (Auto) 0.2 % (0.0-4.0) 04/28/17 21:32 Baso % (Auto) 0.3 % (0.0-2.0) 04/28/17 21:32 Neut # 10.1 K/uL (1.8-7.0) H 04/28/17 21:32 Lymph # 3.5 K/uL (1.0-4.3) 04/28/17 21:32 Ritchie # 1.0 K/uL (0.0-0.8) H 04/28/17 21:32 Eos # 0.0 K/uL (0.0-0.7) 04/28/17 21:32 Baso # 0.0 K/uL (0.0-0.2) 04/28/17 21:32 PT 10.5 Seconds (9.8-13.1) 04/28/17 21:32 INR 0.9 (0.9-1.2) 04/28/17 21:32 APTT 29.9 Seconds (25.6-37.1) 04/28/17 21:32 Sodium 138 mmol/l (132-148) 05/01/17 05:50 Potassium 3.4 MMOL/L (3.6-5.0) L 05/01/17 05:50 Chloride 94 mmol/L (98-107) L 05/01/17 05:50 Carbon Dioxide 37 mmol/L (22-30) H 05/01/17 05:50 Anion Gap 10 (10-20) 05/01/17 05:50 BUN 13 mg/dl (7-17) 05/01/17 05:50 Creatinine 0.8 mg/dL (0.7-1.2) 05/01/17 05:50 Est GFR ( Amer) > 60 05/01/17 05:50 Est GFR (Non-Af Amer) > 60 05/01/17 05:50 Random Glucose 100 mg/dL (65-105) 05/01/17 05:50 Calcium 9.2 mg/dL (8.4-10.2) 05/01/17 05:50 Troponin I < 0.0120 ng/mL (0.00-0.120) 04/28/17 21:32 - Hospital Course Hospital Course: 46yr old F admitted for worsening neck and right arm pain with recent MRI findings of Cervical stenosis. Orthopedics and Neurosurgery consulted patient is not a candidate for surgical intervention at this time as assessment points towards a neuromuscular abnormality and MRI findings do not support presentation. Neurology was consulted, gave Dexamethasone 10mg Q8 for 3 doses, ordered MRI of right brachial plexus: was unremarkable, patient improved. Discharged stable with neurology recommendations to take Carbamazepine 200mg PO Q12H and continue Neurontin 400mg Q8H, follow up with neurology as outpatient for EMG/NCS in a week. Resume home meds. Follow up with PMD in 1 week. - Date & Time of H&P Date of H&P: 04/29/17 Time of H&P: 00:48 Discharge Exam - Head Exam Head Exam: ATRAUMATIC, NORMAL INSPECTION, NORMOCEPHALIC - Eye Exam Eye Exam: EOMI, PERRL - ENT Exam ENT Exam: Mucous Membranes Moist - Neck Exam Neck exam: Full Rom - Respiratory Exam Respiratory Exam: NORMAL BREATHING PATTERN. absent: Respiratory Distress - Cardiovascular Exam Cardiovascular Exam: REGULAR RHYTHM, +S1, +S2 - GI/Abdominal Exam GI & Abdominal Exam: Normal Bowel Sounds, Soft (obese). absent: Tenderness - Extremities Exam Extremities exam: normal inspection (mild tenderness along right upper back/ shoulder and proximal humerus, no swelling, no deformity, no erythema) - Back Exam Back exam: absent: CVA tenderness (L), CVA tenderness (R) - Neurological Exam Neurological exam: Alert, CN II-XII Intact, Oriented x3 - Psychiatric Exam Psychiatric exam: Flat Affect - Skin Skin Exam: Dry, Intact, Warm Discharge Plan - Discharge Medications Prescriptions: carBAMazepine [Tegretol] 200 mg PO Q12 #60 tab Gabapentin [Neurontin] 400 mg PO Q8 #90 cap - Follow Up Plan Condition: FAIR Disposition: HOME/ ROUTINE Instructions: Electromyography (DC), Epidural Pain Control for Adults (GEN), Cervical Spinal Stenosis (DC), Cervical Radiculopathy (GEN) Additional Instructions: -Take medications as prescribed -May return to work on 05/07/17 -Follow up with neurologist of your choice (referrals included) -Resume home medications, activity as tolerated Referrals: Aquiles Castaneda MD [Medical Doctor] - Abdi Wallace MD [Staff Provider] - Collin Tate MD [Staff Provider] - Andrea Schwab MD [Medical Doctor] - Hossein Maya MD [Medical Doctor] - [place] Aguilar-Geoffrey Alexander MD [Staff Provider] -
== END 2017-05-02 19:21 | disposition home or self-care (01) | DRG 74 ==
LOC: H.ER 20:50 → H.ERHOLD 21:58 → H.MEDSURG1 23:19
PROVIDERS: ADMIT Family Medicine Geriatric Medicine; ATTEND Family Medicine Geriatric Medicine
DX: G54.0 Brachial plexus disorders (principal); M48.02 Spinal stenosis, cervical region; G40.89 Other seizures; I10 Essential (primary) hypertension; F17.210 Nicotine dependence, cigarettes, uncomplicated; D72.829 Elevated white blood cell count, unspecified; E87.6 Hypokalemia; Z96.653 Presence of artificial knee joint, bilateral

== ENCOUNTER 2017-05-30 13:17 | Day surgery (SDC) | payer OTHER ==
[2017-05-30 13:47] VITALS: BMI 33.6
[2017-05-30] MEDS ORDERED: Midazolam 2 MG/2 ML VIAL ONE ×2 (14:01→14:25)
[2017-05-30] MEDS ORDERED: Dexamethasone 4 mg/1 ml ONE (14:01)
[2017-05-30] MEDS ORDERED: Lidocaine 1% Inj (20ml) ONE (14:02)
[2017-05-30] MEDS ORDERED: Bupivacaine HCl 0.25% PF (30 ml) Inj ONE (14:02)
[2017-05-30] MEDS ORDERED: Iohexol 300 10 ML ONE (14:02)
[2017-05-30] MEDS ORDERED: Bupivacaine HCl 0.25% PF (10 ml) Inj ONE (14:24)
[2017-05-30] MEDS ORDERED: Iohexol 300 10 ML IJ ONE (14:30)
[2017-05-30] MEDS ORDERED: Bupivacaine HCl 0.25% PF (10 ml) Inj IJ ONE (14:30)
[2017-05-30] MEDS ORDERED: Lidocaine 1% Inj (20ml) IJ ONE (14:30)
[2017-05-30] MEDS ORDERED: Dexamethasone 4 mg/1 ml IM ONE (14:30)
[2017-05-30] MEDS ORDERED: Lactated Ringer's 1,000 ML IV ONE (14:40)
[2017-05-30] MEDS ORDERED: Lactated Ringer's 1,000 ML IV SCH (14:42)
[2017-05-30] MEDS ORDERED: HYDROmorphone 0.5 mg/0.5 ml ISec IVP PRN (14:42)
[2017-05-30 16:21] VITALS: RESP 18
[2017-05-30 17:17] VITALS: BP 133/85; PULSE 85; TEMP 98.5; O2SAT 100
--- NOTE | 2017-05-30 17:22 | RAD ---
PROCEDURE: Cervical epidural HISTORY: PAIN MANAGEMENT COMPARISON: None TECHNIQUE: Standard protocol for this study/examination. FINDINGS: Total fluoroscopic time (continuous mode) utilized during the procedure: 32.2 seconds. Submitted images from the current procedure: 1.0 IMPRESSION: Less than 1 hr fluoroscopic time utilized during performance of the procedure.
--- NOTE | 2017-05-30 21:40 | OP ---
PROCEDURE DATE: 05/30/2017 PREOPERATIVE DIAGNOSIS: Right arm complex regional pain syndrome POSTOPERATIVE DIAGNOSIS: Right arm complex regional pain syndrome PROCEDURE: Right stellate ganglion block. ANESTHESIOLOGIST: Dr. Smith. SURGEON: Dr. Aguilar. ANESTHESIA: Monitored anesthesia care. COMPLICATIONS: None. SPECIMEN: None. DESCRIPTION OF PROCEDURE: After we had discussion of the procedure with the patient including its risks, benefits, alternative, outcome data, possibility of no effect or increased pain, the patient consented to the procedure. She denied any recent infections, bleeding tendencies or being on anticoagulants. Decision was then made to proceed to the OR. The patient was placed on the fluoroscopy table in a supine position with a pillow underneath her shoulders. The neck was slightly extended. The right neck was then prepped and draped in the usual sterile fashion and sterile technique adhered during the entire procedure. In the anterior and posterior view, the landmark was determined to be at the intersection of the vertebral body and the transverse process of the C6 vertebrae. The skin overlying this area was infiltrated with 1% lidocaine using 25 gauge needle. Subsequently, a 25-gauge 3-1/2 inch spinal needle was then incrementally advanced under fluoroscopic guidance until bony contact was reached. The left hand was used to retract the left carotid pulse. Care was taken so that the needle does not deviate more medial than the border between the vertebral body and transverse process. After bony contact was made, aspiration was negative for air or blood. At this point, approximately 0.5 mL of Isovue contrast was injected showing appropriate spread without any signs of CSF intervenous or any other inadvertant puncturing of structures. After appropriate needle placement, approximately 10 mL of 0.25% Marcaine and Decadron along trace amount of contrast was gradually injected in 3 mL intervals. The patient remained communicative throughout and denies any neurological deficits or pain during the injection. At the end of the procedure, the neck was dry and clean and bandage was applied. The patient was then transferred to recovery area in good conditions without any signs of CUTTER HELPER toxicity or any neurological defect. She will follow up in our office in approximately 2 to 4 weeks. En-Geoffrey Aguilar MD
== END 2017-05-30 18:10 | disposition home or self-care (01) ==
LOC: H.OPSURG 13:17
PROVIDERS: ATTEND Anesthesiology
DX: G90.511 Complex regional pain syndrome I of right upper limb (principal); M50.20 Other cervical disc displacement, unspecified cervical region; I10 Essential (primary) hypertension
CPT/HCPCS: 64999; J1100; J2250; J3010; J7120; Q9967

== ENCOUNTER 2017-08-08 10:16 | Day surgery (SDC) | payer OTHER ==
[2017-08-08 11:05] VITALS: BMI 34.5
[2017-08-08] MEDS ORDERED: Iohexol 300 10 ML ONE (11:40)
[2017-08-08] MEDS ORDERED: Bupivacaine HCl 0.25% PF (10 ml) Inj ONE (11:40)
[2017-08-08] MEDS ORDERED: Dexamethasone 4 mg/1 ml ONE (11:40)
[2017-08-08] MEDS ORDERED: Lactated Ringer's 1,000 ML IV ONE (12:04)
[2017-08-08] MEDS ORDERED: Lactated Ringer's 1,000 ML IV SCH (12:30)
[2017-08-08 13:32] VITALS: RESP 18
[2017-08-08 14:00] VITALS: TEMP 98.4
[2017-08-08 15:02] VITALS: BP 136/87; PULSE 90; O2SAT 98
--- NOTE | 2017-08-08 16:40 | OP ---
PROCEDURE DATE: 08/08/2017 PREOPERATIVE DIAGNOSIS: Right upper arm complex regional pain syndrome. POSTOPERATIVE DIAGNOSIS: Right upper arm complex regional pain syndrome. PROCEDURE: Right stellate ganglion block. SURGEON: Tiara Aguilar MD TYPE OF ANESTHESIA: Monitored anesthesia care. ANESTHESIA ADMINISTERED BY: Shawn Gonzales MD COMPLICATIONS: None. SPECIMEN: None. DESCRIPTION OF PROCEDURE: After we had discussion of the procedure with the patient including its risks, benefits, alternative, outcome data, possibility of no effect or increased pain, the patient consented to the procedure. She denies any recent infections, bleeding tendencies, or being on anticoagulants. Decision was then made to proceed to the OR. Patient was placed on the fluoroscopy table in a supine position with a shoulder roll in place. The right neck was prepped and draped in the usual sterile fashion and sterile technique was adhered to during the entire procedure. The target is the transition of the vertebral body and the transverse process at the C6 vertebrae. This area was first visualized on fluoroscopy in the anterior posterior view. The skin overlying this area was infiltrated with 1% lidocaine using 25-gauge needle. Subsequently, a 25-gauge 3-1/2 inch spinal needle was then incrementally advanced under fluoroscopic guidance until bony contact with the transverse process was made. Care was taken not to veer into the imaginary line medial to the vertebral body. The carotid pulse was also palpated and the path of the needle was directed away from the pulse. The path of the needle was always in the safety zone during the entire injection. After bony contact was made, the needle was slightly withdrawn approximately 2 mm. At this point, approximately 1 mL of Isovue contrast was injected showing appropriate spread without any signs of CSF or intervenous uptake. There was no outline of the contour of the esophagus over the trachea during the contrast injection. After appropriate placement of the needle, approximately 12 mL of Decadron and 0.25% Marcaine mixture was gradually injected. Patient tolerated the procedure well. At the end of the case, the neck was clean and dry, bandage was applied. The patient was then transferred to recovery area in good conditions without any signs of MANAGER [employer]IANCES toxicity or any neurological deficit. She will have a follow up in our office in approximately 2 to 4 weeks. En-Geoffrey Aguilar MD
--- NOTE | 2017-08-08 17:11 | RAD ---
PROCEDURE: Fluoroscopy up to 1 hr. HISTORY: PAIN MANAGEMENT COMPARISON: None TECHNIQUE: Standard protocol for this study/examination. FINDINGS: Total fluoroscopic time (continuous mode) utilized during the procedure: 44.4 seconds. Submitted images from the current procedure:2.0 IMPRESSION: Less than 1 hr fluoroscopic time utilized during performance of the procedure.
== END 2017-08-08 16:45 | disposition home or self-care (01) ==
LOC: H.OPSURG 10:16
PROVIDERS: ATTEND Anesthesiology
DX: M54.12 Radiculopathy, cervical region (principal); I10 Essential (primary) hypertension; G40.909 Epilepsy, unspecified, not intractable, without status epilepticus; G89.29 Other chronic pain
CPT/HCPCS: 64510; J1100; J2001; J2270; J2704; J7120; Q9967

== ENCOUNTER 2017-09-04 08:03 | Day surgery (SDC) | payer OTHER ==
[2017-09-04] MEDS ORDERED: Propofol 10 mg/ml Inj (20 ML) ONE (10:59)
[2017-09-04] MEDS ORDERED: Midazolam 2 MG/2 ML VIAL ONE (10:59)
[2017-09-04] MEDS ORDERED: Lidocaine 4% (Laryng-O-Jet) Kit MM ONE (10:59)
[2017-09-04] MEDS ORDERED: Succinylcholine 200 mg/10 ml Inj IV ONE ×2 (10:59→11:05)
[2017-09-04] MEDS ORDERED: Lidocaine 2% MPF (5 ml) Inj ONE (10:59)
[2017-09-04] MEDS ORDERED: Rocuronium 10 mg/ml (5 ml) ONE (11:06)
[2017-09-04] MEDS ORDERED: Lactated Ringer's 1,000 ML IV ONE ×2 (11:45→13:23)
[2017-09-04] MEDS ORDERED: Etomidate 20 mg/10ml Inj IV ONE (12:10)
[2017-09-04] MEDS ORDERED: Dexamethasone 4 mg/1 ml ONE (12:11)
[2017-09-04] MEDS ORDERED: Lidocaine 2% w Epi 1:100,000 Inj IJ ONE (12:20)
--- NOTE | 2017-09-04 13:47 | PCM.SURG1 ---
Surgeon's Initial Post Op Note - Surgeon's Notes Surgeon: Abdi Wallace MD Short Goods Drier: Lisandra Rivero PA-C Type of Anesthesia: General Endo Pre-Operative Diagnosis: Right shoulder RTC tear Operative Findings: see op report Post-Operative Diagnosis: same as pre-op dx Operation Performed: Right Shoulder Arthroscopic Double Row Rotator Cuff Repair , extensive debriedment, subacromial decompression, biceps tenotomy Specimen/Specimens Removed: none Estimated Blood Loss: EBL {In ML}: 3 Date of Surgery/Procedure: 09/04/17 Time of Surgery/Procedure: 12:45
[2017-09-04] MEDS ORDERED: Oxycodone/Acetaminophen 5/325 mg Tab PO PRN (13:49)
[2017-09-04] MEDS ORDERED: HYDROmorphone 0.5 mg/0.5 ml ISec IVP PRN (13:54)
--- NOTE | 2017-09-04 13:57 | PCM.ANESB1 ---
Interscalene Block - Brachial Plexus Date of Procedure: 09/04/17 Anesthesiologist: Janet Pre-Procedure Diagnosis: Right rotator cuff tear Post-Procedure Diagnosis: Same Procedure Performed: Interscalene Block of Brachial Plexus Right - Procedure Interscalene Block of Brachial Plexus: This procedure was explained to the patient that it is for post-operative pain management. Consent was obtained after a thorough discussion with the patient regarding the benefits and possible complications of local anesthetic block of the Brachial Plexus at the Interscalene area. The patient was brought to the Operating Room and standard monitors were applied. Time out was held with the circulating nurse to confirm the correct surgery and appropriate block. After applying Oxygen by nasal cannula and administering IV Sedation, the patient's head was gently rotated away from the __right____operative shoulder and the anterior scalene groove was carefully palpated. The ultrasound transducer was then applied to the skin in the transverse plane and the brachial plexus was visualized lateral to the carotid artery and in between the anterior and middle scalene muscles. After identification,the anterior lateral portion of the neck was prepped with Betadine solution three times and Lidocaine 1% was injected subcutaneously for topical analgesia. At this point, a # 22 gauge Stimuplex 2 inches insulated needle was inserted into the interscalene groove and directed in a caudal and midline direction. The needle was inserted lateral to the ultrasound transducer in-plane towards the brachial plexus in a [id number] direction. Needle advancement was performed carefully under direct ultrasound visualization. Nerve stimulator was used and twitched of the affected extremity including the hand brachialis muscles, biceps and the deltoid was obtained at a current of ___0.4__MA. After repeated negative aspiration,___2__cc of___0.5%__, ropivicaine were injected and this was followed with ___18__cc of __0.5___% ___ropivicaine and .05% bupivicaine with 1:200,000 epinephrine . Under ultrasound guidance the local anesthetics were observed surrounding the roots of the brachial plexus. The needle was removed intact . The patient had stable vital signs, was conscious and in no apparent distress. The patient tolerated the interscalene block of the bracheal plexus well with stable vital signs and was prepared for subsequent surgery.
[2017-09-04] MEDS ORDERED: Lactated Ringer's 1,000 ML IV SCH (14:00)
[2017-09-04 16:26] VITALS: RESP 18
[2017-09-04 17:30] VITALS: BP 120/71; PULSE 90; TEMP 98; O2SAT 96
--- NOTE | 2017-09-04 19:12 | OP ---
PROCEDURE DATE: 09/04/2017 ATTENDING SURGEON: Abdi Wallace MD. WILDLIFE MANAGEMENT PROFESSOR: Lisandra Rivero PA-C. PREOPERATIVE DIAGNOSES: 1. Right shoulder high-grade partial rotator cuff tear. 2. Right shoulder synovitis. 3. Right shoulder subchondral bone cyst. POSTOPERATIVE DIAGNOSES: 1. Right shoulder major synovitis. 2. High-grade partial supraspinatus tear. 3. Biceps tenosynovitis. 4. Impingement. 5. Subacromial adhesions. 6. Subacromial bursitis. PROCEDURES: 1. Right shoulder double row arthroscopic rotator cuff repair. 2. Subacromial decompression with acromioplasty. 3. Lysis of adhesions in subacromial space. 4. Complete synovectomy. ANESTHESIA TYPE: General and interscalene block. ESTIMATED BLOOD LOSS: 10 mL. SPECIMENS: None. CLOSURE: Primary. FLUIDS: See anesthesia sheet. ANTIBIOTICS: See anesthesia sheet. COMPLICATIONS: None. INDICATIONS: After failing a course of nonoperative therapy, the patient elected to undergo the above procedures. In the office the risks and possible complications of the shoulder arthroscopy were discussed in detail with the patient. These risks include, but are not limited to, continued pain, lack of motion, infection, vascular injury, and nerve injury including axillary nerve dysfunction, reflex sympathetic dystrophy, compartment syndrome, limb loss, and . The patient expressed an understanding of the risks and possible benefits of the procedure, and was also made aware of the alternatives to surgery. An informed consent was obtained, and was checked immediately preop. DESCRIPTION OF PROCEDURE: The patient was correctly identified in the holding area and the right shoulder was marked with the surgeon's initials. The patient was transported to the operating room and placed in the supine position and general anesthesia and regional interscalene block was used and exam under anesthesia was obtained. A preoperative orthopedic examination revealed a passive range of motion of 160 degrees of forward flexion, 40 degrees of external rotation, and 140 degrees of abduction. Stability examination revealed no instability The patient was then placed in a beach chair position utilizing the beach chair positioning device. The patient's head was stabilized and the indicated upper extremity was prepped and draped in the standard surgical fashion. The anatomic structures were outlined with a skin marker, and 1% lidocaine with epinephrine was injected into the posterior, anterior, and lateral portal areas. A #21-gauge spinal needle was placed in the glenohumeral joint from the posterior portal and 10 mL of sterile saline was injected into the glenohumeral joint. Return of fluid indicated correct needle placement into the joint. The needle was then withdrawn and a #11 blade was used to make a 1-cm incision at the posterior portal site. Next, the arthroscopic blunt trocar was inserted into the glenohumeral joint. A #21-gauge spinal needle was placed through the anterior rotator interval, and the anterior portal was made with a #11 blade after the spinal needle was withdrawn. A 7-mm cannula was then inserted after the skin incision was made and the arthroscopic probe was then used to examine the internal structures of the glenohumeral joint. With the shoulder in abducted and externally rotated position, the articular surface of the rotator cuff was visualized. The arthroscope and probe were then switched from posterior to anterior. The posterior labrum, posterior capsule, and biceps anchor reflection was then inspected with the arthroscope in the anterior portal position. Examination of the glenohumeral joint revealed: 1. High-grade partial supraspinatus tear. 2. Biceps tenosynovitis. 3. Synovitis. Excessive glenohumeral synovitis was cleared with a 4.0 mm full radius shaver. The hypertrophic, erythematous synovium was resected. Hemostasis was maintained with the radiofrequency device. Upon careful arthroscopic evaluation of biceps tendon and its anchor site at the labrum, it was noted to be highly frayed and tears not amenable to repair. Due to tissue quality and the patient's age, decision was made to proceed with biceps tenotomy. Using arthroscopic scissors, biceps tenotomy was successfully performed. The loose edges of labrum were debrided using radiofrequency probe and arthroscopic shaver. At this point, the arthroscope was withdrawn from the glenohumeral joint and subacromial space was then entered using a blunt trocar. Gentle resistance sweeping against the coracoacromial ligament confirmed proper placement of the sheath and the arthroscope was inserted. A 1-cm incision was made at the inferolateral acromial area to create the lateral portal. Examination of the subacromial space revealed: 1. High-grade partial supraspinatus tear. 2. Subacromial bursitis. 3. Subacromial adhesions. 4. Impingement. Visualization of the subacromial space was difficult due to excessive bursitis. A bursectomy was performed using a combination of radiofrequency device as well as a 4.0-mm full radius motorized shaver. The soft tissue on the undersurface of the acromion was debrided utilizing the 4.0-mm full radius shaver and the radiofrequency device was used for hemostasis. At this point, the coracoacromial ligament was released with the radiofrequency device and the acromial branch of the thoracoacromial artery was coagulated with the same instrument. Subacromial decompression was performed with a 4.0-mm conical nasir using both the medial portal and the "cutting-block" precision acromioplasty technique from the posterior portal. The undersurface of the acromion was resected to a flat, smooth surface to allow unrestricted excursion of the rotator cuff. There were multiples adhesions noted within the subacromial space. Adhesions were found within the anterior, posterior, and lateral gutters. These adhesions were scarred into anterior and posterior portion of rotator cuff limiting range of motion. Using the 4.0-mm motorized shaver and radiofrequency probe, adhesions were debrided and removed. All the bleeding surfaces were coagulated. Afterwards, the shoulder was taken through range of motion and there was a notable improvement in range of motion and unrestrictive excursion of rotator cuff muscle and tendons. After adequate subacromial decompression, attention was then turned to the rotator cuff tear, which was easily visualized after adequate bursectomy had been performed. An auxiliary lateral portal was placed 2 cm posterior to the original lateral portal, after a correct "-man's angle" was determined using a transdeltoid 21 gauge spinal needle. Arthroscopic soft tissue releases were performed using an elevator at the coracohumeral ligament insertion and superior glenoid to free up the rotator cuff to provide adequate excursion to support a repair to the greater tuberosity. Next, the greater tuberosity was gently debrided with a combination of the 4.0 mm straight shaver and radiofrequency device, and the bone was denuded to a bleeding surface using the 4.0-mm nasir. The lateral margin of the rotator cuff tear was debrided to a smooth and stable tendon surface using the 4.0-mm shaver. Two 4.5-mm Arthrex corkscrew suture anchors were placed with the proper "-man's angle" into the greater tuberosity, and a mattress suture from each anchor was passed through supraspinatus 10 mm medial to the torn edge. These anchors formed the medial row of the double row repair. The arm was abducted to 70 degrees, and the leading edge of the cuff was drawn to its proper insertion on the greater tuberosity. The #2 FiberWire mattress sutures were tied with standard arthroscopic knot tying techniques - Ryne knots and half hitches using a knot pusher. The remaining sutures were secured to the tuberosity with two 4.5-mm PushLock absorbable anchors, which were placed with standard technique into the lateral aspect of the greater tuberosity approximately 1 cm lateral to the medial row anchors. One suture strand from each knot was crossed to the diagonal PushLock anchor along with the suture strand from the corresponding anchor directly medial. This linking of the medial and lateral row formed a "suture bridge" rotator cuff repair. The ends of the remaining sutures were then cut. The shoulder was put through a passive ROM, and the rotator cuff repair was noted to be stable through a ROM of 130/50. No prominence of the suture knots or of rotator cuff tissue was noted to impinge during abduction and internal rotation. The subacromial space was then irrigated with sterile saline, and closure was instituted with sutures. A dressing was placed consisting of Xeroform, 4x4's, ABD pads, and tape. The patient was placed in a sling with an ABD pad in the axilla. The patient was then placed in a supine position and extubated without incident. The patient was transferred to the recovery room in stable condition, having tolerated the procedure well. Postoperatively, the patient will be maintained in an abduction sling, also provided with my rehab protocol, defining the restriction and sling use for 6 weeks. Followup in days. The sponge and needle count at the close of the case was correct. The attending surgeon was scrubbed and present for all the critical portions of the case, including all of the intra-articular arthroscopic procedures. During this procedure, I was assisted by Lisandra Rivero PA-C, who assisted in positioning the patient on the operating room table as well as transferring the patient from the operating room table to the recovery room stretcher. In addition, Lisandra Rivero PA-C, assisted me during the actual operative procedure by positioning the patient's extremity to allow for easier arthroscopic access to all areas of the joint. The presence of Lisandra Rivero PA-C, as my operative dental ceramist assistant, was medically necessary to ensure the utmost safety of the patient in the pre, intra-, and postoperative periods. Abdi Wallace MD
== END 2017-09-04 17:30 | disposition home or self-care (01) ==
LOC: H.OPSURG 08:03
PROVIDERS: ATTEND Orthopaedic Surgery
DX: M75.111 Incomplete rotator cuff tear or rupture of right shoulder, not specified as traumatic (principal); M24.111 Other articular cartilage disorders, right shoulder; M65.811 Other synovitis and tenosynovitis, right shoulder; J45.909 Unspecified asthma, uncomplicated; I10 Essential (primary) hypertension; M75.21 Bicipital tendinitis, right shoulder; M75.41 Impingement syndrome of right shoulder; M75.01 Adhesive capsulitis of right shoulder; M75.51 Bursitis of right shoulder
CPT/HCPCS: 29826; 29827; 29828; C1713; J0330; J0690; J1100; J2250; J2405; J2704; J2765; J3010; J7030; J7120

== ENCOUNTER 2017-09-09 01:40 | Inpatient (IN) | payer OTHER ==
[2017-09-09 01:40] VITALS: BMI 34.5
--- NOTE | 2017-09-09 03:03 | ED PDOC ---
Upper Extremity Pain/Injury Chief Complaint (Provider): pain/swelling in upper extremity History Per: Patient History/Exam Limitations: no limitations Onset/Duration Of Symptoms: Days (2) Current Symptoms Are (Timing): Still Present Quality: Aching, Tightness Additional Complaint(s): Micheline Montoya is a 47 yo F with PMH seizure disorder, HTN, osteoarthritis who presented to ED today 09/09/17 with complaint of left upper extremity pain/ swelling x 1-2 days (started evening). Of note, she had an arthroscopic procedure done for a rotator cuff injury on the RIGHT shoulder 5 days ago, on 09/04. Reports that she has not had this sensation in her left shoulder/extremity until two days ago. She states that she feels the swelling/ tightness started in her L wrist and has moved up her arm to her shoulder. Describes the sensation as "uncomfortable" and "tight." Denies any injury to the extremity in question. PMD: [facility] (has not been seen since 01/2017) also sees Dr. Wallace (ortho), Dr. Tate (neuro) and Dr. Aguilar (pain management). PMH: seizure disorder, HTN, osteoarthritis, hx of DM2 but not after sleeve gastrectomy. Past Surg hx: arthroscopic rotator cuff injury repair 08/2017, sleeve gastrectomy 2012, cholecystectomy 2012, patrial knee replacements bilaterally followed by L total knee replacement, resection of R lobe of thyroid, hysterectomy 2010, multiple laparascopic [employer] procedures (endometriosis, hysterectomy), 2 C-sections, 7 D&C, tonsillectomy 1977. Medications: gabapentin 600 mg daily, chlorthalidone 25 mg. Currently taking Percocet post-op. ROS: denies chest pain, shortness of breath, dizziness, abdominal pain/ discomfort. <Veda Gerardo - Last Filed: 09/09/17 06:51> <Satnam Carlson - Last Filed: 09/10/17 02:41> Time Seen by Provider: 09/09/17 02:10 Chief Complaint (Nursing): Upper Extremity Problem/Injury Past Medical History Vital Signs: Last Vital Signs Temp 98.2 F 09/09/17 01:54 Pulse 96 H 09/09/17 01:54 Resp 16 09/09/17 01:54 BP 146/101 H 09/09/17 01:54 Pulse Ox 96 09/09/17 01:54 - Medical History PMH: Arthritis, Diabetes (not since sleeve gastrectomy), HTN, Kidney Stones, Migraine (hemiplegic migraine), Seizures (partial seizures last episode 1 week ago) Denies: HIV - Surgical History Surgical History: Appendectomy, Cholecystectomy, Tonsillectomy, Other surgeries: sleeve gastrectomy, resection of R lobe of thyroid, knee replacement, hysterectomy, R shoulder rotator cuff repair - Family History Family History: States: Unknown Family Hx <Veda Gerardo - Last Filed: 09/09/17 06:51> Vital Signs: Last Vital Signs Temp 98.1 F 09/10/17 00:00 Pulse 100 H 09/10/17 00:00 Resp 20 09/10/17 00:00 BP 129/84 09/10/17 00:00 Pulse Ox 97 09/10/17 00:00 <Satnam Carlson - Last Filed: 09/10/17 02:41> - Home Medications Home Medications: Ambulatory Orders Medication Instructions Recorded Chlorthalidone [Hygroton] 25 mg PO DAILY 05/30/17 Gabapentin [Neurontin] 600 mg PO DAILY 05/30/17 Docusate [Colace] 100 mg PO DAILY PRN 09/04/17 Oxycodone HCl/Acetaminophen 1 mg PO Q6 PRN 09/04/17 [Endocet 5-325 Tablet] - Allergies Allergies/Adverse Reactions: Allergies Allergy/AdvReac Type Severity Reaction Status Date / Time latex Allergy REDNESS Verified 09/03/17 13:00 tape Allergy REDNESS Uncoded 09/03/17 13:00 Review of Systems ROS Statement: Except As Marked, All Systems Reviewed And Found Negative Musculoskeletal: Positive for: Shoulder Pain, Arm Pain, Hand Pain <Veda Gerardo - Last Filed: 09/09/17 06:51> Physical Exam - Physical Exam Appears: Positive for: Non-toxic Head Exam: Positive for: ATRAUMATIC, NORMOCEPHALIC Skin: Positive for: Normal Color, Warm, Dry Eye Exam: Positive for: Normal appearance, EOMI Neck: Positive for: Painless ROM, Supple Cardiovascular/Chest: Positive for: Regular Rate, Rhythm, Other (L sided chest wall tenderness). Negative for: Murmur Respiratory: Positive for: Normal Breath Sounds. Negative for: Respiratory Distress Gastrointestinal/Abdominal: Positive for: Normal Exam, Bowel Sounds, Soft Extremity: Positive for: Normal ROM, Calf Tenderness (pt c/o calf tenderness on palpation), Other (05:20 on re-eval- pt's L arm more swollen than on initial PE , has red streak running proximaly up left forearm, originating where she had saline lock during her surgical procedure 5 days ago). 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 possible thrombotic event vs inflammatory process -D-dimer -CPK -ESR -CBC -BMP -Toradol 15 mg x1 0520 D-dimer 309 ESR 41 WBC 13.2 On re-evaluation, there is a significantly more prominent than before erythematous, warm to the touch streak running proximally up pt's left forearm, originating at the site where she had saline lock for her surgery 5 days ago; likely phlebitis. Zosyn x1 Left upper and lower extremity duplex ordered Case seen/discussed with Dr. Carlson. <Veda Gerardo - Last Filed: 09/09/17 06:51> Disposition - Patient ED Disposition Is Patient to be Admitted: Yes - Disposition Disposition Time: 05:20 - Pt Status Changed To: Hospital Disposition Of: Inpatient - Admit Certification Admit to Inpatient:: After my assessment, the patient will require hospitalization for at least two midnights. This is because of the severity of symptoms shown, intensity of services needed, and/or the medical risk in this patient being treated as an outpatient. <Veda Gerardo - Last Filed: 09/09/17 06:51> <Satnam Carlson - Last Filed: 09/10/17 02:41> - Clinical Impression Clinical Impression: Phlebitis - Disposition Condition: FAIR
[2017-09-09 03:34] LABS: BASO # 0.2 K/uL (0.0-0.2); BASO % 1.3 % (0.0-2.0); EOS # 0.7 K/uL (0.0-0.7); EOS % 5.1 % (0.0-4.0); HEMATOCRIT 37.5 % (34.0-47.0); LYMPH # 3.9 K/uL (1.0-4.3); LYMPH % 29.5 % (20.0-40.0); MEAN CELL VOLUME 84.4 fl (81.0-99.0); MEAN CORPUSCULAR HEMOGLOBIN 28.3 pg (27.0-31.0); MEAN CORPUSCULAR HGB CONC 33.6 g/dL (33.0-37.0); MEAN PLATELET VOLUME 7.6 fl (7.2-11.7); MONO # 0.9 K/uL (0.0-0.8); MONO % 7.1 % (0.0-10.0); NEUT # 7.6 K/uL (1.8-7.0); NRBC % 0.1 % (0.0-0.0); WHITE BLOOD COUNT 13.2 K/uL (4.8-10.8)
[2017-09-09] MEDS ORDERED: Piperacillin/Tazobact 3.375 GM in Sodium Chloride 0.9% 100 ML IV STA (05:04)
[2017-09-09] MEDS ORDERED: Morphine 4 MG/ML VIAL IVP ONE (05:04)
[2017-09-09] MEDS ORDERED: Morphine 4 MG/ML VIAL ONE (05:06)
[2017-09-09] MEDS ORDERED: Oxycodone/Acetaminophen 5/325 mg Tab PO PRN (06:11)
[2017-09-09 06:14] LABS: CALCIUM 8.7 mg/dL (8.4-10.2); CARBON DIOXIDE 34 mmol/L (22-30); CHLORIDE 96 mmol/L (98-107); GFR AFRICAN-AMERICAN > 60; SODIUM 136 mmol/l (132-148)
[2017-09-09 06:21] LABS: BLOOD UREA NITROGEN 9 mg/dl (7-17); GLUCOSE,RANDOM 121 mg/dL (65-105); POTASSIUM 5.5 MMOL/L (3.6-5.0)
--- NOTE | 2017-09-09 07:02 | CP.PCM.HP ---
History of Present Illness - History of Present Illness History of Present Illness: Full code PMD: [facility] Next of kin: Terri Montoya(Mother) [phone] History taken from patient 47 y/o F with PMH of seizure disorder, hemiplegic migraines, HTN, presented to ED today with complaint of left upper extremity pain/swelling x 1-2 days. Patient had an arthroscopic procedure done for a rotator cuff injury on the RIGHT shoulder 5 days ago and has been taking percocet PO, wearing sling and no PT yet. Reports that she has not had this sensation in her left shoulder/ extremity until two days ago. She states that she feels tightness started in her L wrist and has moved up her arm to her shoulder. Denies any injury to the extremity, numbness, tingling or weakness. Denies paresthesias on R/UE. Admits "tightness" on both LE mainly ankles, chronic, that as per patient improves with her Bp medication. Patient had and IV line on the L/hand the day of the R/ shoulder sx. Pain and swelling are now worse in the medial-anterior aspect of L/ elbow. Patient denies being on OCPs. Smoker. Patient follows up with Dr. Wallace (ortho), Dr. Tate (neuro) and Dr. Aguilar ( pain management). ED course: CBC, CMP, UE and LE US, EKG, CXR, D-Dimers Zosyn IV x1 Morphine and Toradol for pain PMH: seizure disorder, HTN, hx of DM2 resolved after gastric bypass. SxHx: arthroscopic rotator cuff injury repair 08/2017, sleeve gastrectomy 2012, cholecystectomy 2012, patrial knee replacements bilaterally followed by L total knee replacement, resection of R lobe of thyroid, hysterectomy 2010, multiple laparascopic [employer] procedures (endometriosis, hysterectomy), 2 C-sections, 7 D&C , tonsillectomy 1977. Denies PMHx of similar episodes or any blood clotting disorder FHx: Mother: Arthritis Father unknown Denies FHx of blood clotting disorders SHx: Smoker(1 pack/week x 25 years). ETOH social. Denies drugs ROS: denies chest pain, shortness of breath, dizziness, abdominal pain/ discomfort. Present on Admission - Present on Admission Any Indicators Present on Admission: No Review of Systems - Review of Systems All systems: reviewed and no additional remarkable complaints except (those described on HPI) Past Patient History - Past Medical History & Family History Past Medical History?: Yes - Past Social History Smoking Status: Light Smoker < 10 Cigarettes Daily Alcohol: Occasional Drugs: Denies - CARDIAC Hx Heart Murmur: Yes Hx Hypertension: Yes - PULMONARY Hx Respiratory Disorders: No - NEUROLOGICAL Hx Migraine: Yes (hemiplegic migraine) Hx Seizures: Yes (partial seizures last episode 1 week ago) - HEENT Hx HEENT Problems: No - RENAL Hx Kidney Stones: Yes - ENDOCRINE/METABOLIC Hx Diabetes Mellitus Type 2: Yes (resolved after gastric sleeve) - HEMATOLOGICAL/ONCOLOGICAL Hx Human Immunodeficiency Virus (HIV): No - INTEGUMENTARY Hx Dermatological Problems: No - MUSCULOSKELETAL/RHEUMATOLOGICAL Hx Arthritis: Yes - GENITOURINARY/GYNECOLOGICAL Hx Genitourinary Disorders: No - PSYCHIATRIC Hx Psychophysiologic Disorder: No Hx Emotional Abuse: No Hx Physical Abuse: No Hx Substance Use: No - SURGICAL HISTORY Hx Cholecystectomy: Yes Hx Tonsillectomy: Yes - ANESTHESIA Hx Anesthesia: Yes (tonsillectomy cardiac arrest at age 8) Hx Anesthesia Reactions: Yes (hysterectomy too long to wake up) Hx Malignant Hyperthermia: No Meds Allergies/Adverse Reactions: Allergies Allergy/AdvReac Type Severity Reaction Status Date / Time latex Allergy REDNESS Verified 09/03/17 13:00 tape Allergy REDNESS Uncoded 09/03/17 13:00 Physical Exam - Constitutional Appears: Non-toxic, No Acute Distress - Head Exam Head Exam: NORMAL INSPECTION - Eye Exam Eye Exam: EOMI, PERRL. absent: Conjunctival injection, Periorbital swelling, Periorbital tenderness - ENT Exam ENT Exam: Mucous Membranes Moist - Respiratory Exam Respiratory Exam: Clear to Auscultation Bilateral, NORMAL BREATHING PATTERN. absent: Rales, Wheezes - Cardiovascular Exam Cardiovascular Exam: REGULAR RHYTHM, +S1, +S2. absent: Gallop - GI/Abdominal Exam GI & Abdominal Exam: Normal Bowel Sounds, Soft. absent: Distended, Guarding, Rigid, Tenderness - Extremities Exam Extremities exam: Positive for: calf tenderness (mild/ B/L worse L/calf), normal capillary refill, pedal edema (trace) Additional comments: Mild, superficial tenderness to L/jv-medial elbow, forearm and wrist area. NO signs of significant neurovascular compromise present. Pulses intact. No bony prominence tenderness. Some swelling noticed medial proximal forearm. - Back Exam Back exam: absent: CVA tenderness (L), CVA tenderness (R) - Neurological Exam Neurological exam: Alert, Normal Gait, Oriented x3 - Psychiatric Exam Psychiatric exam: Normal Affect, Normal Mood - Skin Skin Exam: Warm Additional comments: irregular erythematous, light pink, area L/jv-medial elbow. Results - Vital Signs Recent Vital Signs: Last Vital Signs Temp 98.4 F 09/09/17 05:42 Pulse 86 09/09/17 05:42 Resp 16 09/09/17 05:42 BP 106/68 09/09/17 05:42 Pulse Ox 96 09/09/17 06:51 - Labs Result Diagrams: 09/09/17 03:25 09/09/17 03:25 Labs: Laboratory Results - last 24 hr 09/09/17 09/09/17 09/09/17 03:25 03:25 03:25 WBC 13.2 H RBC 4.44 Hgb 12.6 Hct 37.5 MCV 84.4 MCH 28.3 MCHC 33.6 RDW 14.0 Plt Count 530 H D MPV 7.6 Neut % (Auto) 57.0 Lymph % (Auto) 29.5 Randolph % (Auto) 7.1 Eos % (Auto) 5.1 H Baso % (Auto) 1.3 Neut # 7.6 H Lymph # 3.9 Randolph # 0.9 H Eos # 0.7 Baso # 0.2 ESR 41 H D-Dimer, Quantitative 309 H Sodium 136 Potassium 5.5 H Chloride 96 L Carbon Dioxide 34 H Anion Gap 12 BUN 9 Creatinine 0.7 Est GFR ( Amer) > 60 Est GFR (Non-Af Amer) > 60 Random Glucose 121 H Lactic Acid Calcium 8.7 Total Creatine Kinase 91 09/09/17 05:20 WBC RBC Hgb Hct MCV MCH MCHC RDW Plt Count MPV Neut % (Auto) Lymph % (Auto) Randolph % (Auto) Eos % (Auto) Baso % (Auto) Neut # Lymph # Randolph # Eos # Baso # ESR D-Dimer, Quantitative Sodium Potassium Chloride Carbon Dioxide Anion Gap BUN Creatinine Est GFR ( Amer) Est GFR (Non-Af Amer) Random Glucose Lactic Acid 2.4 H Calcium Total Creatine Kinase Assessment & Plan - Assessment and Plan (Free Text) Assessment: 47 y/o F with Hx of HTN, seizures, hemiplegic migraines is admitted to hospital for possible L/UE thrombophlebitis rule out DVT. L/upper ext swelling and pain, acute -more likely SVT than DVT pending US results -S/P R/shoulder rotator cuff repair 5 days ago -recent Hx of IV line to L/UE -D-Dimers slightly elevated -CBC: Mild leukocytosis -Afebrile -K+ elevated(Hemolized) will repeat -S/P Zosyn IV x1 -Start cold compress to affected area TID -Motrin 600 mg q6h schedule -Tylenol PRN for fever -Will monitor S/P R/shoulder rotator cuff repair -C/W Percocet PRN for pain -C/W Shoulder sling -F/U as outpatient Mild calf tenderness, B/L, chronic, worse -Unlikely DVT -F/U US LE -DVT prophylaxis -C/W pain meds HTN, chronic -C/W chlortalidone for now -Monitor -Kidney function normal Seizures disorder/Migraine -C/W Gabapentin for now Prophylaxis -Lovenox 40 mg SQ daily
[2017-09-09] MEDS ORDERED: Enoxaparin 40 mg Syringe SC SCH (09:00)
--- NOTE | 2017-09-09 11:05 | CP.PCM.PN ---
Subjective - Date & Time of Evaluation Date of Evaluation: 09/09/17 Time of Evaluation: 09:40 - Subjective Subjective: Pt seen and examined at beside this morning. Pt is comfortably lying in bed, not in acute distress. Pt reports pain and swelling in left forearm and arm. Reports soreness in the left anterior knee. Denies calf pain. Denies chest pain , dyspnea, abdominal pain, nausea, vomiting, dizziness or arms weakness. Denies fever, chills. Tolerating po intake and reports good sleep last night. Objective - Vital Signs/Intake and Output Vital Signs (last 24 hours): Temp Pulse Resp BP Pulse Ox 98.4 F 86 19 106/68 96 09/09/17 05:42 09/09/17 05:42 09/09/17 08:03 09/09/17 05:42 09/09/17 06:51 - Medications Medications: Current Medications Acetaminophen (Tylenol 325mg Tab) 650 mg PO Q6 PRN PRN Reason: Fever >100.4 F Chlorthalidone (Hygroton) 25 mg PO DAILY [facility] Last Admin: 09/09/17 10:55 Dose: 25 mg Docusate Sodium (Colace) 100 mg PO DAILY PRN PRN Reason: Constipation Enoxaparin Sodium (Lovenox) 88 mg SC Q12 [facility] PRN Reason: Protocol Gabapentin (Neurontin) 600 mg PO DAILY [facility] Last Admin: 09/09/17 10:55 Dose: 600 mg Ibuprofen (Motrin Tab) 600 mg PO Q6 [facility] Last Admin: 09/09/17 10:22 Dose: 600 mg Oxycodone/Acetaminophen (Percocet 5/325 Mg Tab) 1 tab PO Q6 PRN PRN Reason: Pain, moderate (4-7) Stop: 09/12/17 06:12 Oxycodone/Acetaminophen (Percocet 5/325 Mg Tab) 2 tab PO Q6 PRN PRN Reason: Pain, severe (8-10) Stop: 09/12/17 06:58 - Labs Labs: 09/09/17 03:25 09/09/17 03:25 - Constitutional Appears: Non-toxic, No Acute Distress - ENT Exam ENT Exam: Mucous Membranes Moist - Neck Exam Neck Exam: Full ROM, Normal Inspection - Respiratory Exam Respiratory Exam: Clear to Ausculation Bilateral, NORMAL BREATHING PATTERN. absent: Rales, Rhonchi, Wheezes - Cardiovascular Exam Cardiovascular Exam: REGULAR RHYTHM, RRR, +S1, +S2. absent: JVD, Murmur - GI/Abdominal Exam GI & Abdominal Exam: Soft, Normal Bowel Sounds. absent: Guarding, Tenderness - Extremities Exam Extremities Exam: Normal Capillary Refill. absent: Calf Tenderness (minimal tenderness in the left anteromedial mid renee area.), Pedal Edema Additional comments: Mild erythema, swelling and tenderness in the left medial elbow and forearm area. No skin breakage.No bony tenderness. pulse 2+. NVI. - Neurological Exam Neurological Exam: Alert, Awake, Oriented x3 - Psychiatric Exam Psychiatric exam: Normal Affect, Normal Mood - Skin Skin Exam: Intact, Warm Assessment and Plan - Assessment and Plan (Free Text) Assessment: 47 y/o F with Hx of HTN, seizures, hemiplegic migraines is admitted to hospital for superficial left basilic vein thrombosis. Acute superficial left basilic vein thrombosis -Preliminary US of SERVANDO shows basilic vein thrombosis( pending official report) -Start Lovenox 90 mg SQ BID. 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 -Possible hypercoagulable disorder -F/U on hypercoagulable panel -D-Dimers slightly elevated -CBC: Mild leukocytosis -Afebrile -Motrin 600 mg q6h schedule -Tylenol PRN for fever Hypokalemia: -Asymptomatic -K+: 3.1 -Start KCl 40 meq PO -Repeat CMP in AM S/P right shoulder rotator cuff repair on 09/04/17 -C/W Percocet PRN for pain -C/W Shoulder sling -F/U as outpatient HTN, chronic -C/W chlortalidone 25 mg PO daily. -Monitor -Kidney function normal Seizures disorder/Migraine -C/W Gabapentin 600mg PO QHS Prophylaxis -Pt is on Lovenox 90mg SC for superficial vein thrombosis Diet: Heart healthy diet Code status: Full code
[2017-09-09] MEDS: Enoxaparin 100 mg Syringe SC SCH ×2 (12:19→20:23)
[2017-09-09 12:32] LABS: ALB/GLOB RATIO 1.2 (1.0-2.1); ALKALINE PHOSPHATASE 69 U/L (38-126); ALT/SGPT 28 U/L (9-52); AST/SGOT 22 U/L (14-36); BILIRUBIN,TOTAL 0.2 mg/dl (0.2-1.3); BLOOD UREA NITROGEN 13 mg/dl (7-17); CARBON DIOXIDE 33 mmol/L (22-30); CHLORIDE 96 mmol/L (98-107); GFR AFRICAN-AMERICAN > 60; GLUCOSE,RANDOM 112 mg/dL (65-105); POTASSIUM 3.1 MMOL/L (3.6-5.0); SODIUM 137 mmol/l (132-148); TOTAL PROTEIN 7.1 G/DL (6.3-8.2)
[2017-09-09 12:35] LABS: PARTIAL THROMBOPLASTIN TIME 33.6 Seconds (25.6-37.1)
[2017-09-09] MEDS: Oxycodone/Acetaminophen 5/325 mg Tab PO PRN ×2 (13:20→20:22)
[2017-09-09] MEDS ORDERED: Potassium Chloride 20 mEq ER Tab PO ONE (15:12)
[2017-09-09 15:39] LABS: RBC URINE < 1 /hpf (0-3); URINE BILIRUBIN NEGATIVE (NEGATIVE); URINE BLOOD NEGATIVE (NEGATIVE); URINE COLOR YELLOW (YELLOW); URINE GLUCOSE (UA) NEG (Normal); URINE KETONE NEGATIVE (NEGATIVE); URINE LEUKOCYTE ESTERASE NEG Leu/uL (Negative); URINE PROTEIN NEGATIVE (NEGATIVE); URINE UROBILINOGEN 0.2-1.0 mg/dL (0.2-1.0); WBC URINE < 1 /hpf (0-5)
[2017-09-09 15:55] VITALS: O2SAT 97
[2017-09-10 00:31] VITALS: RESP 20
[2017-09-10 06:48] LABS: HEMATOCRIT 34.5 % (34.0-47.0); MEAN CELL VOLUME 84.7 fl (81.0-99.0); MEAN CORPUSCULAR HEMOGLOBIN 27.5 pg (27.0-31.0); MEAN CORPUSCULAR HGB CONC 32.5 g/dL (33.0-37.0); RED CELL DISTRIBUTION WIDTH 13.8 % (11.5-14.5); WHITE BLOOD COUNT 9.4 K/uL (4.8-10.8)
[2017-09-10 06:56] LABS: BLOOD UREA NITROGEN 11 mg/dl (7-17); CALCIUM 8.6 mg/dL (8.4-10.2); CARBON DIOXIDE 33 mmol/L (22-30); CHLORIDE 99 mmol/L (98-107); GFR AFRICAN-AMERICAN > 60; GLUCOSE,RANDOM 140 mg/dL (65-105); POTASSIUM 3.2 MMOL/L (3.6-5.0); SODIUM 138 mmol/l (132-148)
[2017-09-10] MEDS: Oxycodone/Acetaminophen 5/325 mg Tab PO PRN (08:09)
[2017-09-10 08:12] VITALS: BP 121/75; PULSE 82; TEMP 98
[2017-09-10] MEDS: Enoxaparin 100 mg Syringe SC SCH (08:45)
--- NOTE | 2017-09-10 08:57 | CP.PCM.PN ---
Subjective - Date & Time of Evaluation Date of Evaluation: 09/10/17 Time of Evaluation: 07:35 Objective - Vital Signs/Intake and Output Vital Signs (last 24 hours): Temp Pulse Resp BP Pulse Ox 98 F 82 20 121/75 97 09/10/17 08:12 09/10/17 08:12 09/10/17 08:12 09/10/17 08:12 09/10/17 08:12 - Medications Medications: Current Medications Acetaminophen (Tylenol 325mg Tab) 650 mg PO Q6 PRN PRN Reason: Fever >100.4 F Chlorthalidone (Hygroton) 25 mg PO DAILY [facility] Last Admin: 09/10/17 08:45 Dose: 25 mg Docusate Sodium (Colace) 100 mg PO DAILY PRN PRN Reason: Constipation Enoxaparin Sodium (Lovenox) 90 mg SC Q12 [facility] PRN Reason: Protocol Last Admin: 09/10/17 08:45 Dose: 90 mg Gabapentin (Neurontin) 600 mg PO DAILY [facility] Last Admin: 09/10/17 08:46 Dose: 600 mg Potassium Chloride (Potassium Chloride 10 Meq/100 Ml) 100 mls @ 100 mls/hr IVPB Q1 [facility] Stop: 09/10/17 10:59 Ibuprofen (Motrin Tab) 600 mg PO Q6 [facility] Last Admin: 09/10/17 04:39 Dose: 600 mg Oxycodone/Acetaminophen (Percocet 5/325 Mg Tab) 1 tab PO Q6 PRN PRN Reason: Pain, moderate (4-7) Stop: 09/12/17 06:12 Oxycodone/Acetaminophen (Percocet 5/325 Mg Tab) 2 tab PO Q6 PRN PRN Reason: Pain, severe (8-10) Stop: 09/12/17 06:58 Last Admin: 09/10/17 08:09 Dose: 2 tab - Labs Labs: 09/10/17 06:15 09/10/17 06:15 PT 11.0 Seconds (9.8-13.1) 09/09/17 11:30 INR 1.0 (0.9-1.2) 09/09/17 11:30 APTT 33.6 Seconds (25.6-37.1) 09/09/17 11:30
--- NOTE | 2017-09-10 09:55 | US ---
PROCEDURE: Left Upper Extremity Venous Doppler HISTORY: r/o dvt COMPARISON: None available. TECHNIQUE: Left upper extremity deep veins, including the lower internal jugular, subclavian, axillary, brachial and basilic veins, were evaluated flow, compressibility and respiratory phasicity. FINDINGS: Intraluminal echogenic material, incomplete compressibility and partial absence of Doppler flow were observed in the mid and distal portions of the basilic vein. Normal flow, compressibility and respiratory phasicity was observed in the the left upper extremity deep veins. IMPRESSION: Nonocclusive superficial thrombophlebitis of the mid/distal portions of the basilic vein.
--- NOTE | 2017-09-10 09:57 | US ---
HISTORY: LT UPPER EXTREMITY THROMBOPHLEITIS . PRIORS: None. FINDINGS: 2-D, color and duplex Doppler analysis of the lower extremity venous circulation using routine protocol from the femoral veins through the popliteal veins. Venous compressibility: Normal. Flow and augmentation patterns: Normal. Visualized veins upper third of calf: Normal. Holt cyst: None. IMPRESSION: No sonographic or Doppler evidence for DVT in left lower extremity.
--- NOTE | 2017-09-10 11:36 | CP.PCM.DIS ---
Provider - Provider Date of Admission: 09/09/17 05:06 Attending physician: Ashley Sheridan MD Primary care physician: [facility] Time Spent in preparation of Discharge (in minutes): 30 Diagnosis - Discharge Diagnosis (1) Acute thrombosis of left basilic vein Status: Acute (2) Arm pain Status: Acute Hospital Course - Lab Results Lab Results: Micro Results 09/09/17 05:15 Blood Blood Culture - Preliminary NO GROWTH AFTER 24 HOURS 09/09/17 05:45 Blood Blood Culture - Preliminary NO GROWTH AFTER 24 HOURS Most Recent Lab Values WBC 9.4 K/uL (4.8-10.8) 09/10/17 06:15 RBC 4.08 Mil/uL (3.80-5.20) 09/10/17 06:15 Hgb 11.2 g/dL (12.0-16.0) L 09/10/17 06:15 Hct 34.5 % (34.0-47.0) 09/10/17 06:15 MCV 84.7 fl (81.0-99.0) 09/10/17 06:15 MCH 27.5 pg (27.0-31.0) 09/10/17 06:15 MCHC 32.5 g/dL (33.0-37.0) L 09/10/17 06:15 RDW 13.8 % (11.5-14.5) 09/10/17 06:15 Plt Count 483 K/uL (130-400) H 09/10/17 06:15 MPV 7.6 fl (7.2-11.7) 09/09/17 03:25 Neut % (Auto) 57.0 % (50.0-75.0) 09/09/17 03:25 Lymph % (Auto) 29.5 % (20.0-40.0) 09/09/17 03:25 Glynn % (Auto) 7.1 % (0.0-10.0) 09/09/17 03:25 Eos % (Auto) 5.1 % (0.0-4.0) H 09/09/17 03:25 Baso % (Auto) 1.3 % (0.0-2.0) 09/09/17 03:25 Neut # 7.6 K/uL (1.8-7.0) H 09/09/17 03:25 Lymph # 3.9 K/uL (1.0-4.3) 09/09/17 03:25 Glynn # 0.9 K/uL (0.0-0.8) H 09/09/17 03:25 Eos # 0.7 K/uL (0.0-0.7) 09/09/17 03:25 Baso # 0.2 K/uL (0.0-0.2) 09/09/17 03:25 ESR 41 mm/hr (0-20) H 09/09/17 03:25 PT 11.0 Seconds (9.8-13.1) 09/09/17 11:30 INR 1.0 (0.9-1.2) 09/09/17 11:30 APTT 33.6 Seconds (25.6-37.1) 09/09/17 11:30 D-Dimer, Quantitative 309 ng/mlDDU (0-230) H 09/09/17 03:25 Sodium 138 mmol/l (132-148) 09/10/17 06:15 Potassium 3.2 MMOL/L (3.6-5.0) L 09/10/17 06:15 Chloride 99 mmol/L (98-107) 09/10/17 06:15 Carbon Dioxide 33 mmol/L (22-30) H 09/10/17 06:15 Anion Gap 9 (10-20) L 09/10/17 06:15 BUN 11 mg/dl (7-17) 09/10/17 06:15 Creatinine 0.7 mg/dl (0.7-1.2) 09/10/17 06:15 Est GFR ( Amer) > 60 09/10/17 06:15 Est GFR (Non-Af Amer) > 60 09/10/17 06:15 Random Glucose 140 mg/dL (65-105) H 09/10/17 06:15 Lactic Acid 2.4 MMOL/L (0.7-2.1) H 09/09/17 05:20 Calcium 8.6 mg/dL (8.4-10.2) 09/10/17 06:15 Total Bilirubin 0.2 mg/dl (0.2-1.3) 09/09/17 11:30 AST 22 U/L (14-36) 09/09/17 11:30 ALT 28 U/L (9-52) 09/09/17 11:30 Alkaline Phosphatase 69 U/L (38-126) 09/09/17 11:30 Total Creatine Kinase 91 U/L (30-135) 09/09/17 03:25 Total Protein 7.1 G/DL (6.3-8.2) 09/09/17 11:30 Albumin 3.9 g/dL (3.5-5.0) 09/09/17 11:30 Globulin 3.2 gm/dL (2.2-3.9) 09/09/17 11:30 Albumin/Globulin Ratio 1.2 (1.0-2.1) 09/09/17 11:30 TSH 3rd Generation 0.54 mIU/ML (0.46-4.68) 09/09/17 11:30 Urine Color Yellow (YELLOW) 09/09/17 14:53 Urine Clarity Slighty-cloudy (Clear) 09/09/17 14:53 Urine pH 6.0 (5.0-8.0) 09/09/17 14:53 Ur Specific Iota 1.016 (1.003-1.030) 09/09/17 14:53 Urine Protein Negative mg/dL (NEGATIVE) 09/09/17 14:53 Urine Glucose (UA) Neg mg/dL (Normal) 09/09/17 14:53 Urine Ketones Negative mg/dL (NEGATIVE) 09/09/17 14:53 Urine Blood Negative (NEGATIVE) 09/09/17 14:53 Urine Nitrate Negative (NEGATIVE) 09/09/17 14:53 Urine Bilirubin Negative (NEGATIVE) 09/09/17 14:53 Urine Urobilinogen 0.2-1.0 mg/dL (0.2-1.0) 09/09/17 14:53 Ur Leukocyte Esterase Neg Keith/uL (Negative) 09/09/17 14:53 Urine RBC (Auto) < 1 /hpf (0-3) 09/09/17 14:53 Urine Microscopic WBC < 1 /hpf (0-5) 09/09/17 14:53 Ur Squamous Epith Cells 3 /hpf (0-5) 09/09/17 14:53 Hyaline Casts 0-2 /hpf (0-2) 09/09/17 14:53 Stool Occult Blood Negative (NEGATIVE) 09/09/17 18:00 - Hospital Course Hospital Course: 47 yo female hx recent right shoulder arthroscopic surgery on 09/04/[address] Wallace admitted to [facility] for left arm pain and swelling. Pt was admitted to r/o DVT. Duplex US on LUE shows nonocclusive superficial thrombophlebitis of the mid /distal portions of the left basilic vein. LLE US was negative for DVT. Pt received 3 doses of lovenox 90 mg before discharge. Pt has SVT and does not need senior care anticoagulation tx. Pt is given script for repeat LUE US on and naproxen 500 mg BID x 10 days. Pt has appointment with Dr. Wallace on 09/14. Pt also has appointment at [facility] with Dr. Morataya on 09/17/17 at 11 am. Medications on discharge as follows: Gabapentin 600mg PO QHS Colace 100mg PO daily prn Percocet 5mg/325mg q6h prn Naproxen 500 mg PO BID Chlorthalidone 25 mg PO daily Discharge Exam - Head Exam Head Exam: NORMAL INSPECTION Discharge Plan - Discharge Medications Prescriptions: Chlorthalidone [Hygroton] 25 mg PO DAILY #30 tab Naproxen 500 mg PO BID #20 ect - Follow Up Plan Condition: FAIR Disposition: HOME/ ROUTINE Instructions: Superficial Thrombophlebitis (GEN) Additional Instructions: Prescription given for ultrasound. please make appointment for 09/15/17. You have an appointment with at [facility] on 09/17/17 at 11 am. Referrals: [facility] [Outside] Kelin Morataya MD [Resident] -
--- NOTE | 2017-09-10 11:40 | RAD ---
HISTORY: productive cough COMPARISON: 04/23/2017 TECHNIQUE: Chest PA and lateral FINDINGS: LUNGS: No active pulmonary disease. PLEURA: No significant pleural effusion identified. No pneumothorax apparent. CARDIOVASCULAR: Normal. OSSEOUS STRUCTURES: No significant abnormalities. VISUALIZED UPPER ABDOMEN: Normal. OTHER FINDINGS: None. IMPRESSION: No active disease.
[2017-09-10] MEDS: Potassium CL 10mEq/100ml 100 ML IVPB SCH ×3 (11:41→13:51)
[2017-09-11 22:52] LABS: B2 GLYCOPROTEIN I AB(IGA) <9 SAU (<=20); B2 GLYCOPROTEIN I AB(IGG) <9 SGU (<=20); B2 GLYCOPROTEIN I AB(IGM) <9 SMU (<=20)
== END 2017-09-10 15:45 | disposition home or self-care (01) | DRG 301 ==
LOC: H.ER 01:40 → H.ERHOLD 05:06 → H.MEDSURG1 06:40
PROVIDERS: ADMIT Family Medicine Geriatric Medicine; ATTEND Family Medicine Geriatric Medicine
DX: I82.612 Acute embolism and thrombosis of superficial veins of left upper extremity (principal); G43.409 Hemiplegic migraine, not intractable, without status migrainosus; I10 Essential (primary) hypertension; G40.909 Epilepsy, unspecified, not intractable, without status epilepticus; E87.6 Hypokalemia; F17.210 Nicotine dependence, cigarettes, uncomplicated; Z90.710 Acquired absence of both cervix and uterus; Z98.84 Bariatric surgery status; Z96.652 Presence of left artificial knee joint

== ENCOUNTER 2017-09-13 12:56 | Emergency (ER) | payer OTHER ==
[2017-09-13 12:57] VITALS: BMI 34.5
[2017-09-13 13:04] VITALS: BP 150/105; PULSE 96; RESP 18; TEMP 98.2; O2SAT 98
--- NOTE | 2017-09-13 13:41 | ED PDOC ---
Upper Extremity Pain/Injury Time Seen by Provider: 09/13/17 13:30 Chief Complaint (Nursing): Upper Extremity Problem/Injury History Per: Patient Onset/Duration Of Symptoms: Days (2) Current Symptoms Are (Timing): Still Present Severity: Moderate Pain Scale Rating Of: 2 Additional Complaint(s): Redness and swelling left forearm x 2 days. Recently admitted with Sup thrombophlebitis, DVT ruled out. Pt concerned about new clot. Denies chest pain SOB or fever. Past Medical History Vital Signs: Last Vital Signs Temp 98.2 F 09/13/17 12:59 Pulse 96 H 09/13/17 12:59 Resp 18 09/13/17 12:59 BP 150/105 H 09/13/17 12:59 Pulse Ox 98 09/13/17 12:59 - Medical History PMH: Arthritis, Diabetes (not since sleeve gastrectomy), HTN, Kidney Stones, Migraine (hemiplegic migraine), Chronic Kidney Disease, Seizures (partial seizures last episode 1 week ago) Denies: HIV - Surgical History Surgical History: Appendectomy, Cholecystectomy, Tonsillectomy, Other surgeries: s/p arthroscopy right shoulder - Family History Family History: States: Unknown Family Hx - Home Medications Home Medications: Ambulatory Orders Medication Instructions Recorded Gabapentin [Neurontin] 600 mg PO DAILY 05/30/17 Docusate [Colace] 100 mg PO DAILY PRN 09/04/17 Oxycodone HCl/Acetaminophen 1 mg PO Q6 PRN 09/04/17 [Endocet 5-325 Tablet] Chlorthalidone [Hygroton] 25 mg PO DAILY #30 tab 09/10/17 Naproxen 500 mg PO BID #20 ect 09/10/17 Naproxen [Naprosyn] 500 mg PO Q12H #20 tab 09/13/17 Sulfamethoxazole/Trimethoprim 1 tab PO BID #20 tab 09/13/17 [Bactrim DS 800 mg-160 mg] - Allergies Allergies/Adverse Reactions: Allergies Allergy/AdvReac Type Severity Reaction Status Date / Time latex Allergy REDNESS Verified 09/03/17 13:00 tape Allergy REDNESS Uncoded 09/03/17 13:00 Review of Systems Cardiovascular: Negative for: Chest Pain Respiratory: Negative for: Shortness of Breath Musculoskeletal: Positive for: Arm Pain Physical Exam - Physical Exam Appears: Positive for: Non-toxic, No Acute Distress Skin: Negative for: Normal Color (Erythema and swelling left forearm distal to elbow. ) Cardiovascular/Chest: Positive for: Regular Rate, Rhythm Respiratory: Positive for: CNT, Normal Breath Sounds Extremity: Positive for: Tenderness (Left forearm.), Swelling - ECG O2 Sat by Pulse Oximetry: 98 Disposition - Clinical Impression Clinical Impression: Thrombophlebitis - Patient ED Disposition Is Patient to be Admitted: No Counseled Patient/Family Regarding: Studies Performed, Diagnosis, Need For Followup, Rx Given - Disposition Referrals: [facility] [Outside] Disposition: Routine/Home Disposition Time: 16:02 Condition: FAIR Prescriptions: Naproxen [Naprosyn] 500 mg PO Q12H #20 tab Sulfamethoxazole/Trimethoprim [Bactrim DS 800 mg-160 mg] 1 tab PO BID #20 tab Instructions: Superficial Thrombophlebitis (ED) Forms: [facility] (Frisian)
--- NOTE | 2017-09-13 15:47 | US ---
PROCEDURE: Left Upper Extremity Venous Doppler HISTORY: r/o DVT COMPARISON: Left upper extremity ultrasound dated 09/09/2017. TECHNIQUE: Left upper extremity veins, including the lower internal jugular, subclavian, axillary, brachial, cephalic and basilic veins, were evaluated flow, compressibility and respiratory phasicity. FINDINGS: The previously described nonocclusive thrombus in the mid and distal portions of the basilic vein are unchanged. There is intraluminal echogenic material, incompressibility and complete absence of Doppler flow in the antecubital fossa, forearm and wrist portions of the basilic vein. Normal flow, compressibility and respiratory phasicity was observed in the left upper extremity deep veins. IMPRESSION: Nonocclusive superficial thrombophlebitis of the mid/distal portions of the basilic vein with occlusive thrombophlebitis of the portions involving the antecubital fossa, forearm and wrist. It is unclear if the areas of thrombosis in the antecubital fossa, forearm and wrist are new as these areas were not previously imaged.
== END 2017-09-13 16:30 | disposition home or self-care (01) ==
LOC: H.ER 12:56
DX: I80.8 Phlebitis and thrombophlebitis of other sites (principal); E11.9 Type 2 diabetes mellitus without complications